=== PATIENT | male | born 1990 | race Caucasian/White ===

== ENCOUNTER 2024-07-02 13:14 | Emergency (ER) | payer MEDICAID, SELFPAY ==
--- NOTE | ~2024-07-02 | CT_ITS ---
EXAMINATION: CT MAXILLOFACIAL WITHOUT CONTRAST CLINICAL INFORMATION: Orbital cellulitis. Swelling of the left cheek. COMPARISON: None available. TECHNIQUE: Multidetector helical imaging was performed in the axial plane with generation of coronal and sagittal reformatted images. This CT examination was performed using dose optimization techniques as appropriate, variously including the following: *Automated exposure control *Adjustment of mA and/or kV according to patient size (this includes techniques or standardized protocols for targeted exams where dose is matched to indication/reason for exam; i.e. extremities or head) *Use of iterative reconstruction technique DLP: 511 mGy-cm FINDINGS: FRONTAL SINUSES AND DRAINAGE PATHWAYS: The frontal sinuses are clear. The frontoethmoidal recesses are patent. MAXILLARY SINUSES AND DRAINAGE PATHWAYS: The maxillary sinuses are clear. The maxillary ostia and infundibula are patent. ETHMOID SINUSES: The ethmoid air cells are clear. The ethmoid roofs appear symmetric and intact. SPHENOID SINUS AND DRAINAGE PATHWAYS: The sphenoid sinus is clear. The sphenoethmoidal recesses are patent. The carotid canals are normally covered by bone. NASAL PASSAGE: The nasal passages are clear. The osseous nasal septum remains midline. ORBITS: Normal appearance of the osseous orbits. The lamina papyracea are intact. Moderate left-sided periorbital, preseptal edema/hyperemia with mild fat stranding extending into the left cheek. There is a 0.6 cm peripherally enhancing collection associated with the left lacrimal gland. No right-sided preseptal edema. No demonstrated significant retrobulbar edema. Normal appearance of the globes. Normal symmetric appearance of the extraocular musculature. No abnormalities of the intraconal or extraconal adipose tissue. Normal appearance of the optic nerve sheaths. Normal appearance of the right-sided lacrimal gland. No orbital fluid collections. No abnormalities of the orbital apices. TEMPOROMANDIBULAR JOINTS: The temporomandibular joints remain well aligned. Normal appearance of the temporomandibular joints. ADDITIONAL RELEVANT FINDINGS: No evidence of maxillofacial bone fractures. The zygomatic arches remain intact. No nasal bone fracture. No evidence of mandibular or maxillary fracture. The visualized mastoid air cells and middle ear cavities remain well aerated. Odontogenic enamel erosions and periapical lucencies associated with the right-sided maxillary and mandibular molars. Limited evaluation of the intracranial structures without significant abnormalities. The premaxillary, retromaxillary, pterygopalatine fossa, temporal fossa, and parapharyngeal adipose tissue is maintained. No demonstrated soft tissue abnormalities within the intrinsic tissues of the tongue. CT/CT facial bones w IV con IMPRESSION: 1. Moderate left-sided periorbital, preseptal edema/hyperemia with mild fat stranding extending into the left cheek. There appears to be a 0.6 cm peripherally enhancing collection associated with the left lacrimal gland, potentially indicating abscess formation in the setting of dacryoadenitis. 2. Odontogenic disease of the right-sided maxillary and mandibular molars. Electronically signed by: Sylvester Berman DO 07/03/2024 12:47 AM EDT
[2024-07-02 13:22] VITALS: BP 148/98; PULSE 70; O2SAT 100
[2024-07-02 13:59] VITALS: BP 127/87; PULSE 62; RESP 16; TEMP 36.4; O2SAT 100; BMI 25.1
--- NOTE | 2024-07-02 14:06 | ED_ITS ---
[facility] - General Adult General Chief complaint: Eye Problems Stated complaint: LEAKY L EYE W/PAIN/SWELLING,WEAK,NUMB HANDS Time Seen by Provider: 07/02/24 18:24 Source: patient, RN notes reviewed and old records reviewed Mode of arrival: ambulatory History of Present Illness ED Provider: Doris Vaz PA-C [facility] narrative: 34-year-old male with no significant past medical history presenting to the ED complaining of left eye swelling, erythema, tearing, drainage, pain, and blurry vision x2 weeks. Describes pain as sandpaper. Denies known foreign body. Admits to wearing contacts, infrequently. Denies known injury, trauma, visual loss. Denies wearing glasses. Related Data Previous Rx's ?Medication ?Instructions ?Recorded amoxicillin 875 mg-potassium 1 tab PO BID #14 tabs 07/03/24 clavulanate 125 mg tablet Allergies Allergy/AdvReac Type Severity Reaction Status Date / Time No Known Allergies Allergy Verified 07/02/24 14:01 Review of Systems 2 Review of Systems: Yes all other systems are reviewed and are negative Constitutional: Constitutional: Reports as per [facility] Past Medical History Attestation statement: The following information was validated with the patient. Source: old records reviewed Social History Social History Advance Directives: No Advance Directives Information Provided: No Physical Exam ED Vital Signs: Vital Signs - 24 hr 07/02/24 13:59 07/02/24 20:15 Temperature 97.5 F 98.2 F Pulse Rate 62 75 Respiratory Rate 16 20 Blood Pressure 127/87 157/102 H Pulse Oximetry 100 100 Oxygen Delivery Method Room Air Room Air BMI result Body Mass Index 25.1 Const General: cooperative, healthy appearing and no acute distress Orientation/consciousness: patient oriented x3 Limitations: no limitations HENMT Head: Yes normal to inspection and Yes atraumatic Ears: hearing grossly normal bilaterally General nose exam: Normal external nose present Face and sinus: Yes normal facial exam Eyes Periorbital: periorbital findings abnormal left periorbital swelling (extending to left cheek) and periorbital tenderness; no crepitus Conjunctivae: conjunctival abnormal left conjunctival chemosis, conjunctival injection diffuse and discharge purulent Corneas: fluorescein used (Without uptake) Pupils: Equal, round and reactive pupils present EOM: EOMs intact bilaterally (+pain with EOM) Direct Ophthalmoscopy: normal light reflex Neck Neck: Yes normal visual inspection and Yes no meningeal signs Resp Effort & Inspection: normal respiratory effort and no respiratory distress Cardio Rate: regular rate Neuro General: patient oriented x3, tone normal and no meningeal signs Cranial nerves: Yes CN's II-XII intact bilaterally and Yes Equal, round and reactive pupils present Gait exam (Neuro): Normal gait present Extrem General: Yes normal to inspection Course Course Course Narrative: This is a rapid medical exam performed by Marck Pierce NP: Additional HPI, ROS, PE not included below will be deferred to primary provider. Patient is a 34-year-old male presenting to the ED with left eye pain, swelling, purulent drainage. Pressure and pain with leaning forward. 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 Viral serologies are negative. Patient and spouse present at bedside were updated on CT findings, periorbital cellulitis concern for possible abscess of the lacrimal gland. I reviewed patient case and CT findings with my attending Dr. Steven; patient is without signs of systemic toxicity, no significantly impaired visual acuity, symptoms have been present for 2 weeks at this point. Will trial course of oral antibiotics with strict return precautions, and prompt re-evaluation 24-48 hours if symptoms are not improving. Instructed the importance of warm compresses and manual massage to the lower lid to try and excrete any drainage from the gland. Should he develop worsening pain, swelling, discharge, fevers, chills, vision changes follow-up for re-evaluation. CT/CT facial bones w IV con IMPRESSION: 1. Moderate left-sided periorbital, preseptal edema/hyperemia with mild fat stranding extending into the left cheek. There appears to be a 0.6 cm peripherally enhancing collection associated with the left lacrimal gland, potentially indicating abscess formation in the setting of dacryoadenitis. 2. Odontogenic disease of the right-sided maxillary and mandibular molars. Medications Administered Discontinued Medications Generic Name Dose Route Start Last Admin Trade Name Freq PRN Reason Stop Dose Admin Fluorescein Sodium 1 strip 07/02/24 14:10 07/02/24 18:17 Fluorescein Sodium Strip EYE-LEFT 07/02/24 14:11 1 strip ONCE ONE Administration Vancomycin HCl 2,000 mg in 500 mls @ 250 mls/hr 07/02/24 18:24 07/02/24 21:42 Vancomycin/Ns IV 07/02/24 20:23 Infused ONCE ONE Infusion Ceftriaxone Sodium 2 gm/ 50 mls @ 100 mls/hr 07/02/24 18:24 07/02/24 19:22 Sodium Chloride IV 07/02/24 18:53 Infused ONCE ONE Infusion Iohexol 100 ml 07/02/24 20:03 07/02/24 20:03 Iohexol 350 Mg/Ml 100 Ml Infus..Btl IV 07/02/24 20:04 85 ml ONCE ONE Administration Tetracaine HCl 1 drop 07/02/24 14:10 07/02/24 18:17 Tetracaine Hcl 0.5% Oph Alecia 5 Ml Drops EYE-LEFT 07/02/24 14:11 1 drop ONCE ONE Administration Medical Decision Making Medical Decision Making MDM Narrative: 34-year-old male with no significant past medical history presenting to the ED complaining of left eye swelling, erythema, tearing, drainage, pain, and blurry vision x2 weeks. On exam vital signs stable, NAD, nontoxic appearing, physical exam as noted above with left periorbital swelling, erythema, conjunctival injection/chemosis with drainage. EOMs intact without entrapment however with pain. Fluorescein used without uptake. Concern for orbital cellulitis vs preseptal cellulitis. No evidence of abrasion or ulceration. Concern for conjunctivitis. Unable to obtain IOP due to malfunctioning Lloyd-Pen Plan: Visual acuity, labs, CT, empiric IV antibiotics, re-evaluate Please refer to course for remaining clinical decision making, interpretation of labs/imaging results, and discussions with consultants and/or family members. Differential Diagnosis Differential Diagnoses: The differential diagnosis associated with the presentation includes As above Admission/Observation Consideration of admission/observation: Escalation of care including admission/observation considered Lab Data [facility] Lab Attestation statement: I reviewed the patient's lab results. 07/02/24 18:52 07/02/24 18:53 Labs: Lab Results 07/02/24 07/02/24 07/02/24 Range/Units 14:49 18:52 18:53 WBC 14.0 H (4.8-10.8) X10*3/uL RBC 4.88 (4.60-5.80) X10*6/uL Hgb 14.9 (14.0-18.0) g/dl Hct 43.8 (42.0-52.0) % MCV 89.8 (80.0-98.0) fL MCH 30.5 (27.0-33.0) pg MCHC 34.0 (31.0-36.0) g/dl RDW 12.4 (11.0-16.0) % Plt Count 386 (160-400) X10*3/uL MPV 8.7 L (9.4-12.4) fL Immature Gran % (Auto) 0.5 H (0.0-0.4) % Neut % (Auto) 72.1 (45-73) % Lymph % (Auto) 17.5 L (20-40) % Tyrrell % (Auto) 8.1 (2-11) % Eos % (Auto) 1.4 (0-4) % Baso % (Auto) 0.4 (0-2) % Lymph # (Auto) 2.5 (1.2-4.9) X10*3/uL Tyrrell # (Auto) 1.1 (0.1-1.2) X10*3/uL Eos # (Auto) 0.2 (0.0-0.4) X10*3/uL Baso # (Auto) 0.1 (0.0-0.2) X10*3/uL Abs Immat Gran (auto) 0.07 H (0.00-0.03) X10*3/uL Absolute Neuts (auto) 10.1 H (2.0-8.3) x10*3/uL Absolute Nucleated RBC 0.000 (0.0-0.012) X10*3/uL Nucleated RBC % (auto) 0.0 (0.0-0.2) /100WBC ESR 8 (0-15) MM/HR Hold Purple Top SEE NOTE Sodium 139 (135-145) mmol/L Potassium 3.6 (3.3-5.1) mmol/L Chloride 101 (96-108) mmol/L Carbon Dioxide 29 (22-29) mmol/L Anion Gap 13 (12-20) BUN 9 (9-16) mg/dL Creatinine 0.91 (0.5-1.4) mg/dL Estim Creat Clear Calc 119.5 Estimated GFR > 60 Random Glucose 104 (60-115) mg/dL Calcium 10.1 (8.4-10.2) mg/dL C-Reactive Protein 2.19 H (< or = 0.50) mg/dL Influenza Type A (PCR) NEGATIVE (Negative) Influenza Type B (PCR) NEGATIVE (Negative) RSV RNA Qual (PCR) NEGATIVE (Negative) SARS-CoV-2 RNA (RT-PCR) NEGATIVE (Negative) Independent Interpretation I performed an independent interpretation of an: CT Scan Radiology Impression Discussion of test interpretation with radiology: I have reviewed the radiologist's reading. External Record Review External record reviewed: Inpatient record, Office record, Outpatient record, Prior outpatient labs, Prior outpatient radiology, Primary care record and Outside ED record Tests considered The following testing was considered but not selected: As above Prescription Management I considered prescription management with: Pain Medication and Antibiotic Critical Care Time Critical Care Time Critical Care Time: Yes Total Critical Care Time: 40 Attestation: I have personally provided critical care time exclusive of time spent on separately billable procedures. Time includes review of lab data, radiology results, discussion with consultants, and monitoring for potential decompensation. Intervention performed as documented. Discharge Plan Discharge Clinical Impression: Periorbital cellulitis Patient Disposition: Home, Self-Care Instructions: Periorbital Cellulitis in Adults (ED) Additional Instructions: Apply warm moist compresses to the eye 3-4 times daily for 10-15 minutes. Wash her hands thoroughly with warm water and mild non scented soap, After application of warm compress, gently massage the lower lid from the outside of the eye to the inside towards your nose using frequent passes to try and excrete milk drainage from the gland. A prescription for oral antibiotics have been sent to your pharmacy, you received your first dose in the emergency department tonight, please begin taking this tomorrow morning. I have provided contact information for the ice specialist/senior geotechnical engineer associated with our hospital, please contact their office in the morning to arrange for a follow-up visit. After 24-48 hours if you do not notice improvement please return for re- evaluation. Additionally if you notice sudden change or worsening of symptoms please seek re-evaluation promptly. Prescriptions: New amoxicillin-pot clavulanate 875-125 mg tablet 1 tab PO BID Qty: 14 0RF Referrals: [facility] [Primary Care Provider] - Musa Saavedra [Physician] - Print Language: Lao
[2024-07-02 15:50] LABS: Influenza A PCR NEGATIVE (Negative); Influenza B PCR NEGATIVE (Negative); Resp Syncy Virus RNA Qual PCR NEGATIVE (Negative); SARS COV2 PCR INHOUSE NEGATIVE (Negative)
[2024-07-02] MEDS: Tetracaine HCl 0.5% Oph Sol 5 ML DROPS 1 DROP EYE-LEFT (18:17)
[2024-07-02] MEDS: Fluorescein Sodium STRIP 1 STRIP EYE-LEFT (18:17)
[2024-07-02] MEDS: cefTRIAXone sodium 2 GM in 0.9 % Sodium Chloride 50 ML IV (19:03)
[2024-07-02 19:05] LABS: MANUAL DIFF FLAG NO
[2024-07-02 19:08] LABS: Basophils Absolute Auto 0.1 X10*3/uL (0.0-0.2); Basophils Percent Auto 0.4 % (0-2); Eosinophils Absolute Auto 0.2 X10*3/uL (0.0-0.4); Eosinophils Percent Auto 1.4 % (0-4); Hematocrit 43.8 % (42.0-52.0); Hemoglobin 14.9 g/dl (14.0-18.0); Imm Gran Abs Auto 0.07 X10*3/uL (0.00-0.03); Imm Gran Pct Auto 0.5 % (0.0-0.4); Lymphocytes Absolute Auto 2.5 X10*3/uL (1.2-4.9); Lymphocytes Percent Auto 17.5 % (20-40); Mean Corpuscular Hemoglobin 30.5 pg (27.0-33.0); Mean Corpuscular Volume 89.8 fL (80.0-98.0); Mean Platelet Volume 8.7 fL (9.4-12.4); Monocytes Absolute Auto 1.1 X10*3/uL (0.1-1.2); Monocytes Percent Auto 8.1 % (2-11); Neutrophils Absolute Auto 10.1 x10*3/uL (2.0-8.3); Neutrophils Percent Auto 72.1 % (45-73); Platelet Count 386 X10*3/uL (160-400); Red Blood Count 4.88 X10*6/uL (4.60-5.80); Red Cell Distribution Width 12.4 % (11.0-16.0)
[2024-07-02 19:31] LABS: Anion Gap 13 (12-20); Blood Urea Nitrogen 9 mg/dL (9-16); C Reactive Protein 2.19 mg/dL (< or = 0.50); Calcium 10.1 mg/dL (8.4-10.2); Carbon Dioxide 29 mmol/L (22-29); Chloride 101 mmol/L (96-108); Creatinine Clr Calc Pharmacy 119.5; Estimated Glomerular Filt Rate > 60; Glucose Random 104 mg/dL (60-115); Potassium 3.6 mmol/L (3.3-5.1); Sodium 139 mmol/L (135-145)
[2024-07-02] MEDS: vancomycin/NS 2,000 MG/500 ML PLAST..BAG 250 MG IV (19:32)
--- NOTE | 2024-07-02 20:01 | PC.NURSE ---
pt brought back from CT Scan at 1759, anitbiotics stopped when pt brought to ct scan antibiotics resumed upon return to room.
[2024-07-02] MEDS: iohexoL 350 MG/ML 100 ML INFUS..BTL IV (20:03)
[2024-07-02 20:04] LABS: Erythrocyte Sedimentation Rate 8 MM/HR (0-15)
[2024-07-02 20:15] VITALS: BP 157/102; PULSE 75; RESP 20; TEMP 36.8; O2SAT 100
--- NOTE | 2024-07-02 23:41 | PC.NURSE ---
Radiology called regarding results for CT scan Provider notified. Plan of care ongoing.
--- NOTE | 2024-07-03 01:06 | PC.NURSE ---
Pt advised waiting on CT results for his eye/face. Pts family at bedside. Plan of care ongoing.
[2024-07-03 01:55] VITALS: BP 169/110; PULSE 70; RESP 16; TEMP 36.8; O2SAT 100
[2024-07-03 01:56] VITALS: BP 169/110; PULSE 70; RESP 16; TEMP 36.8; O2SAT 100
--- NOTE | 2024-07-03 01:56 | PC.NURSE ---
Pt reports he has HTN and did not take his meds today which is why he believes his b/p is high
== END 2024-07-03 02:00 | disposition home or self-care (01) ==
PROVIDERS: Physician Assistant; Registered Nurse Emergency; Emergency Provider Emergency Medicine
DX: L03.213 Periorbital cellulitis (principal); H57.12 Ocular pain, left eye; R20.0 Anesthesia of skin; H53.8 Other visual disturbances; Z79.899 Other long term (current) drug therapy; Z03.818 Encounter for observation for suspected exposure to other biological agents ruled out
CPT/HCPCS: 0241U; 36415; 70487; 80048; 85025; 85652; 86140; 87040; 96365; 96366; 96367; 99284; J0696; J3370; Q9967

== ENCOUNTER 2025-02-14 15:25 | Inpatient (IN) | payer MEDICAID, SELFPAY ==
[2025-02-14] VITALS (9 sets, daily range): BP systolic 135–154; BP diastolic 74–102; PULSE 81–106; RESP 11–22; TEMP 36.6–37.1; O2SAT 91–100; BMI 25.8; BMI 27.7
--- NOTE | 2025-02-14 | ECG_ITS ---
Test Reason : CP Blood Pressure : */* mmHG Vent. Rate : 94 BPM Atrial Rate : 94 BPM P-R Int : 130 ms QRS Dur : 84 ms QT Int : 366 ms P-R-T Axes : * 86 64 degrees QTcB Int : 457 ms Unusual P axis, possible ectopic atrial rhythm otherwise normla EKG No previous ECGs available Referred By: Generic ED Physician Electronically Signed By: YULY MATSON
--- NOTE | ~2025-02-14 | CT_ITS ---
CLINICAL HISTORY: found on ground CT head without contrast Comparison: None Findings: No intra-axial mass, midline shift, hydrocephalus, or acute hemorrhage. No significant atrophy-like change or white matter disease. There is no sinus or mastoid fluid. The orbits are within normal limits. No skull fracture. IMPRESSION: 1. No acute intracranial findings. This document has been electronically signed by: Sara Polo MD on 02/14/2025 16:45:16
--- NOTE | ~2025-02-14 | CT_ITS ---
CLINICAL HISTORY: hypoxia,cp, sob CT angiography chest with contrast. 3D Postprocessing. Comparison: CT - CT ANGIO CHEST PE PROTOCOL - 02/14/25 17:52 EDT Findings: The heart is normal size. RV/LV ratio is normal. The thoracic aorta is normal caliber. No acute pulmonary embolus. The visualized thyroid and mediastinum are unremarkable. No evidence of pneumonia or edema. Calcified right lower lobe nodule. The upper abdomen is unremarkable. No acute fractures. IMPRESSION: 1. No pulmonary emboli. This document has been electronically signed by: Sara Polo MD on 02/14/2025 18:42:03
--- NOTE | 2025-02-14 15:48 | PC.NURSE ---
Pt placed on 10L oxymask d/t desat when sleeping. Pt continuously desat while sleeping into low 80s, O2 returns to >92% when awake. respiratory called to bedside, provider made aware.
--- NOTE | 2025-02-14 16:08 | ED_ITS ---
HPI - Chest Pain General Chief Complaint: Chest Pain Stated Complaint: CP,AGITATION,ETOH & COCAINE PER EMS Time Seen by Provider: 02/14/25 15:55 Source: patient, family, EMS, RN notes reviewed and old records reviewed Mode of arrival: EMS History of Present Illness ED Provider: Doris Vaz PA-C HPI narrative: 34-year-old male with no significant past medical history presenting to the ED via EMS complaining of chest pain/tightness, SOB, ETOH intoxication, and cocaine use [employer]. History obtained from patient and sister who called EMS. States patient was out drinking/snorting cocaine, came home and was diaphoretic, complaining of chest pain, then patient was found on floor of bathroom, confused/out of it. Patient states he put self on the ground due to chest pain/lightheadedness/dizziness. No reported incontinence or witnessed seizure- like activity. Unknown head strike. Patient admits to drinking a lot of alcohol and snorting cocaine, cannot tell us how much. Denies history of ETOH withdrawal/withdrawal seizures. Denies abdominal pain, nausea/vomiting, cough Related Data Previous Rx's ?Medication ?Instructions ?Recorded amoxicillin 875 mg-potassium 1 tab PO BID #14 tabs 07/03/24 clavulanate 125 mg tablet Allergies Allergy/AdvReac Type Severity Reaction Status Date / Time No Known Allergies Allergy Verified 02/14/25 15:40 Review of Systems 2 Review of Systems: Yes all other systems are reviewed and are negative Constitutional: Constitutional: Reports as per HPI Neurologic: Denies Abnormal speech present [facility] Past Medical History Attestation statement: The following information was validated with the patient. Source: old records reviewed Social History Social History Smoked in Last 30 Days: No Use of substances other than those prescribed or required for medical reasons: Yes Substance Use Type: Crack/Cocaine Substance Use Frequency: Chronic Longstanding Last Used Substance: Just Prior to Admission Any prior treatment program specific to substance use: No Advance Directives: No Advance Directives Information Provided: No Do you have a plan to hurt others: No Plan Physical Exam 2 Vital Signs: Vital Signs: Last Vital Signs Temp 97.9 F 02/14/25 15:44 Pulse 92 02/14/25 18:06 Resp 15 02/14/25 18:06 BP 149/98 H 02/14/25 18:06 Pulse Ox 100 02/14/25 18:06 O2 Del Method Oxymask 02/14/25 18:06 O2 Flow Rate 3 02/14/25 18:06 Oxygen Flow Rate 2 02/14/25 15:37 BMI result Body Mass Index 25.8 Const: Other: Appears under the influence. Lethargic however easily arousable General: cooperative Orientation/consciousness: patient oriented x3 HEENT: Head: Yes normal to inspection and Yes atraumatic Ears: hearing grossly normal bilaterally General nose exam: Normal external nose present Face and sinus: Yes normal facial exam Eyes: General: appearance normal, both eyes and all related structures P upils: reactive and Pinpoint pupils bilaterally EOM: EOMs intact bilaterally Direct Ophthalmoscopy: normal light reflex Neck: Neck: Yes normal visual inspection and Yes no meningeal signs Resp: Effort & Inspection: normal respiratory effort and no respiratory distress Auscultation: clear to auscultation bilaterally, no crackles and no wheezes Cardio: Rate: regular rate Heart sounds: S1 normal heart sound present and S2 normal heart sound present GI: Inspection: Yes normal to inspection Palpation (GI): Soft to palpation, nontender, no guarding and not rigid Back/Spine/Pelvis: Other: No midline cervical/thoracic/lumbar spinous tenderness/step-off or deformity Skin: Rashes: no rashes Wounds: no wounds Neuro: Other: Lethargic however easily arousable General: patient oriented x3, tone normal, moves all extremities, no meningeal signs, no focal motor deficits and CN's II-XI intact bilaterally C ranial nerves: Yes CN's II-XII intact bilaterally Speech: No Abnormal speech present Extrem: General: Yes normal to inspection Course Course Course Narrative: > patient was placed on CPAP by RT due to hypoxia -174--leukocytosis at 12.3 > still low suspicion for severe sepsis. No evidence of infection at this time. pH 7.43. Bicarb 33 -lactic acidosis 2.8 > ?Seizure activity. Initial troponin 5.6 > will obtain repeat -ethanol 129 -viral testing negative CT head/brain wo IV con IMPRESSION: 1. No acute intracranial findings. > 180--patient taken off of CPAP by respiratory therapist, satting 100% on 3 L NC now. When patient falls asleep he does de-sat. Concern for undiagnosed sleep apnea. CT angio chest PE protocol IMPRESSION: 1. No pulmonary emboli. > plan to admit for further management. Case discussed with hospitalist Medications Administered Generic Name Dose Route Start Last Admin Trade Name Freq PRN Reason Stop Dose Admin Sodium Chloride 1,000 mls @ 999 mls/hr 02/14/25 18:00 02/14/25 18:05 Ns IV 02/14/25 19:00 999 mls/hr .[id number] RODERICK Administration Discontinued Medications Generic Name Dose Route Start Last Admin Trade Name Freq PRN Reason Stop Dose Admin Iohexol 100 ml 02/14/25 18:03 02/14/25 18:03 Iohexol 350 Mg/Ml 100 Ml Infus..Btl IV 02/14/25 18:04 65 ml ONCE ONE Administration Ondansetron HCl 4 mg 02/14/25 18:12 02/14/25 18:31 Ondansetron Hcl 4 Mg/2 Ml Vial IVPUSH 02/14/25 18:13 4 mg ONCE ONE Administration Medical Decision Making Medical Decision Making MDM Narrative: 34-year-old male with no significant past medical history presenting to the ED via EMS complaining of chest pain/tightness, SOB, ETOH intoxication, and cocaine use [employer]. On exam initially tachycardic, tachypneic, hypoxic, desats to 79% on RA, 96% on 10 L OxyMask, lethargic however easily arousable, lungs CTA, no evidence of trauma. Abdomen is soft and nontender. Concern for substance use/ETOH abuse intoxication vs ACS vs coronary vasospasm vs ?PE vs ?seizure or syncope. Low suspicion for severe sepsis at this time. Lower suspicion for ICH or intra-abdominal pathology. low suspicion for severe sepsis Plan: EKG, labs, UA, tox screen, head CT, CTA chest, viral testing, anticipated admission Please refer to course for remaining clinical decision making, interpretation of labs/imaging results, and discussions with consultants and/or family members. Differential Diagnosis Differential Diagnoses: The differential diagnosis associated with the presentation includes As above Admission/Observation Consideration of admission/observation: Escalation of care including admission/observation considered Consult Healthcare Provider Management of the patient was discussed with: Hospitalist Lab Data [facility] Lab Attestation statement: I reviewed the patient's lab results. 02/14/25 16:31 02/14/25 16:31 Labs: Lab Results 02/14/25 02/14/25 Range/Units 16:31 16:38 WBC 12.3 H (4.8-10.8) X10*3/uL RBC 4.89 (4.60-5.80) X10*6/uL Hgb 14.8 (14.0-18.0) g/dl Hct 43.0 (42.0-52.0) % MCV 87.9 (80.0-98.0) fL MCH 30.3 (27.0-33.0) pg MCHC 34.4 (31.0-36.0) g/dl RDW 12.9 (11.0-16.0) % Plt Count 393 (160-400) X10*3/uL MPV 8.0 L (9.4-12.4) fL Immature Gran % (Auto) 0.5 H (0.0-0.4) % Neut % (Auto) 69.5 (45-73) % Lymph % (Auto) 19.3 L (20-40) % [place] % (Auto) 7.6 (2-11) % Eos % (Auto) 2.4 (0-4) % Baso % (Auto) 0.7 (0-2) % Lymph # (Auto) 2.4 (1.2-4.9) X10*3/uL [place] # (Auto) 0.9 (0.1-1.2) X10*3/uL Eos # (Auto) 0.3 (0.0-0.4) X10*3/uL Baso # (Auto) 0.1 (0.0-0.2) X10*3/uL Abs Immat Gran (auto) 0.06 H (0.00-0.03) X10*3/uL Absolute Neuts (auto) 8.5 H (2.0-8.3) x10*3/uL Absolute Nucleated RBC 0.000 (0.0-0.012) X10*3/uL Nucleated RBC % (auto) 0.0 (0.0-0.2) /100WBC PT 11.4 (10.9-12.4) SEC INR 1.0 (0.9-1.1) VBG pH 7.43 (7.32-7.43) VBG pCO2 33 mmHg VBG pO2 117 mmHg VBG HCO3 22 (22-26) mmol/L VBG O2 Saturation 99.0 % VBG Base Excess -0.8 mmol/L Sodium 142 (135-145) mmol/L Potassium 3.4 (3.3-5.1) mmol/L Chloride 106 (96-108) mmol/L Carbon Dioxide 21 L (22-29) mmol/L Anion Gap 18 (12-20) BUN 9 (9-16) mg/dL Creatinine 1.02 (0.5-1.4) mg/dL Estim Creat Clear Calc 106.6 Estimated GFR > 60 Random Glucose 112 (60-115) mg/dL Lactic Acid 2.8 H* (0.5-2.0) mmol/L Calcium 9.1 D (8.4-10.2) mg/dL Magnesium 2.0 (1.6-2.6) mg/dL Total Bilirubin 0.4 (0.0-1.0) mg/dL AST 34 (5-37) U/L ALT 24 (0-40) U/L Alkaline Phosphatase 96 (39-117) U/L Troponin I Hi Sens Base 5.6 (<3.5-35.0) ng/L B-Natriuretic Peptide < 10 (<100) pg/mL Total Protein 7.7 (6.5-8.0) g/dL Albumin 4.3 (3.5-5.0) g/dL Ethyl Alcohol 129 mg/dL Influenza Type A (PCR) NEGATIVE (Negative) Influenza Type B (PCR) NEGATIVE (Negative) RSV RNA Qual (PCR) NEGATIVE (Negative) SARS-CoV-2 RNA (RT-PCR) NEGATIVE (Negative) Independent Interpretation I performed an independent interpretation of an: EKG (My interpretation EKG normal sinus rhythm rate of 94. CT interval 130. QTC 457. No STEMI), Plain X- Ray and CT Scan Radiology Impression Discussion of test interpretation with radiology: I have reviewed the radiologist's reading. Independent Historian Clinical information obtained from an independent historian. History obtained from or confirmed by: EMS and Other (Sister) External Record Review External record reviewed: Inpatient record, Office record, Outpatient record, Prior outpatient labs, Prior outpatient radiology, Primary care record and Outside ED record Tests considered The following testing was considered but not selected: As above Prescription Management I considered prescription management with: Other Chronic Conditions Patient?s care impacted by: Other Social Determinants Patient?s care significantly limited by Social Determinants of Health including: Alcoholism and drug addiction in family, Problems related to primary support group and Other Social Determinant of Health Critical Care Time Critical Care Time Critical Care Time: Yes Total Critical Care Time: 50 Attestation: I have personally provided critical care time exclusive of time spent on separately billable procedures. Time includes review of lab data, radiology results, discussion with consultants, and monitoring for potential decompensation. Intervention performed as documented. Discharge Plan Discharge Clinical Impression: Chest pain, Alcohol intoxication, Cocaine use, Hypoxia, Elevated lactic acid level Patient Disposition: Admitted As Inpatient Print Language: Unable To Collect
[2025-02-14 16:37] LABS: MANUAL DIFF FLAG NO
[2025-02-14 16:42] LABS: VBG Base Excess -0.8 mmol/L; VBG HCO3 22 mmol/L (22-26); VBG pCO2 33 mmHg; VBG pH 7.43 (7.32-7.43); VBG pO2 117 mmHg
[2025-02-14 16:45] LABS: Venous Blood Gas Refer to POC result
[2025-02-14 16:47] LABS: Basophils Absolute Auto 0.1 X10*3/uL (0.0-0.2); Basophils Percent Auto 0.7 % (0-2); Eosinophils Absolute Auto 0.3 X10*3/uL (0.0-0.4); Eosinophils Percent Auto 2.4 % (0-4); Hemoglobin 14.8 g/dl (14.0-18.0); Imm Gran Abs Auto 0.06 X10*3/uL (0.00-0.03); Imm Gran Pct Auto 0.5 % (0.0-0.4); Lymphocytes Absolute Auto 2.4 X10*3/uL (1.2-4.9); Lymphocytes Percent Auto 19.3 % (20-40); Mean Corpuscular HGB Conc 34.4 g/dl (31.0-36.0); Mean Corpuscular Hemoglobin 30.3 pg (27.0-33.0); Mean Corpuscular Volume 87.9 fL (80.0-98.0); Monocytes Absolute Auto 0.9 X10*3/uL (0.1-1.2); Monocytes Percent Auto 7.6 % (2-11); Neutrophils Absolute Auto 8.5 x10*3/uL (2.0-8.3); Neutrophils Percent Auto 69.5 % (45-73); Platelet Count 393 X10*3/uL (160-400); Red Blood Count 4.89 X10*6/uL (4.60-5.80); Red Cell Distribution Width 12.9 % (11.0-16.0); White Blood Count 12.3 X10*3/uL (4.8-10.8)
[2025-02-14 16:51] LABS: Ethanol 129 mg/dL
[2025-02-14 16:52] LABS: Prothrombin Time 11.4 SEC (10.9-12.4)
[2025-02-14 16:55] LABS: Alanine Aminotransferase 24 U/L (0-40); Albumin Level 4.3 g/dL (3.5-5.0); Alkaline Phosphatase 96 U/L (39-117); Anion Gap 18 (12-20); Aspartate Amino Transferase 34 U/L (5-37); Bilirubin Total 0.4 mg/dL (0.0-1.0); Blood Urea Nitrogen 9 mg/dL (9-16); Calcium 9.1 mg/dL (8.4-10.2); Carbon Dioxide 21 mmol/L (22-29); Chloride 106 mmol/L (96-108); Creatinine Clr Calc Pharmacy 106.6; Estimated Glomerular Filt Rate > 60; Glucose Random 112 mg/dL (60-115); Potassium 3.4 mmol/L (3.3-5.1); Sodium 142 mmol/L (135-145); Total Protein 7.7 g/dL (6.5-8.0)
[2025-02-14 16:57] LABS: Lactic Acid 2.8 mmol/L (0.5-2.0)
[2025-02-14 16:59] LABS: B Type Natriuretic Peptide < 10 pg/mL (<100)
[2025-02-14 17:01] LABS: Troponin-I High Sens Reflx 2hr 5.6 ng/L (<3.5-35.0)
[2025-02-14 17:24] LABS: Influenza A PCR NEGATIVE (Negative); Influenza B PCR NEGATIVE (Negative); Resp Syncy Virus RNA Qual PCR NEGATIVE (Negative); SARS COV2 PCR INHOUSE NEGATIVE (Negative)
[2025-02-14] MEDS: iohexoL 350 MG/ML 100 ML INFUS..BTL IV (18:03)
[2025-02-14] MEDS: 0.9 % Sodium Chloride 1,000 ML 999 ML IV ×2 (18:05→21:06)
[2025-02-14] MEDS: ondansetron HCL 4 MG/2 ML VIAL IVPUSH (18:31)
--- NOTE | 2025-02-14 18:32 | PC.NURSE ---
Pt placed on CPAP by Nguyễn KANG. Pt O2 sats remained above 92% while sleeping. Trial pt off CPAP per NADIR George- placed on 3L Oxymask. Maintaining O2 sat high 90s. Respirations even and unlabored, no signs of respiratory distress, pt denies chest pain. Resting quietly at this time, call evangelista within reach, family at bedside.
[2025-02-14 18:35] LABS: Reflex Lactate? Lactic Acid Added; Reflex Trop? Y
--- NOTE | 2025-02-14 19:32 | P.HPHOSP_ITS ---
History of Present Illness Date of Service: 02/14/25 <[facility] - Last Filed: 02/14/25 20:05> Attending physician on admission: Bel Parish <[facility] - Last Filed: 02/14/25 20:05> Chief Complaint: withdrawal symptoms <[facility] - Last Filed: 02/14/25 20:05> Patient is 34-year-old male with past medical history infectious cut on the bottom of the foot/sepsis at age 12 which lead to multiorgan failure and ICU admission, alcohol dependence, cocaine use, marijuana use was brought in by ambulance from his sister's home after 2 nights of cocaine use along with usual alcohol use, minimum 2-3 hard liquor drinks. Patient does currently work a full-time job and is the father of 2 children. Patient began to green party after work on night using a moderate amount of cocaine and alcohol. Patient then went to work on Sunday and met up with the same friends and began drinking alcohol and used copious amounts of cocaine via snorting. Patient clarified he was not using crack cocaine. At some point patient made it to his sister's house as he decided it may not be a good idea to be alone. Patient awakened prior to 12 noon and attempted to eat some food. Patient then began to have sudden chest pressure, numbness and tingling to arms and legs, perfuse sweating with nausea and then vomiting. Patient had to lie himself on the bathroom floor and sister saw that he needed intervention. Per patient's sister patient did not lose consciousness and did not appear to have seizure-like activity. 911 was called and patient was brought in for evaluation. Patient was found to be hypoxic 79% on room air. Patient was extremely anxious. Face mask was applied and oxygenation improved. CTA negative for PE, no evidence of pneumonia or edema. Calcified right lower lobe nodule. No acute fractures. Head CT also negative for any acute changes. UA pending. Currently patient has impressive rhinitis with injected sclera. Patient has an intermittent memory of what occurred over the last 2 nights. Patient admits that he is scared and feels that he could have lost his life. Patient's sister expresses that patient's symptoms of drinking daily now has been going on for the last 3-5 months. Patient drinks usually hard liquor 2-3 drinks minimum. Patient appears to be drinking due to increased stress. Patient denies any use of other illicit drugs including fentanyl or crack cocaine. Patient has no history of IV drug abuse. Patient currently denies any suicidal ideation. There is some concern for possible aspiration pneumonia with wheezing noted on the right upper and middle lobes. Patient has a leukocytosis of 12.3 and a lactic acid of 2.8. Patient is not tachycardic or febrile. EKG is reassuring, normal sinus rhythm no ischemic changes. Troponin negative. BNP also normal. Patient currently denies any chest pain, numbness and reports all his previous symptoms have resolved. Plan is admit patient for alcohol/cocaine withdrawal, phenobarbital, antibiotics, IV fluids, antiemetics, addictions referral. <SHAAN Hall - Last Filed: 02/14/25 20:05> Review of Systems 2 Review of Systems: Patient currently denies any chest pain, shortness of breath at rest or with exertion, abdominal pain, lower leg pain, numbness or tingling in any of the extremities. Patient reports a mild headache but no visual acuity changes. Patient denies any issues with swallowing. <SHARMIN HallDAVID - Last Filed: 02/14/25 20:05> Yes all other systems are reviewed and are negative <SHARMIN HallDAVID - Last Filed: 02/14/25 20:05> [facility] Medical History: Medical History (Updated 02/14/25 @ 19:48 by SHAAN Hall) Cocaine use Alcohol intoxication Marijuana dependence Sepsis <SHAAN Hall - Last Filed: 02/14/25 20:05> Functional capacity: independent ambulation <CORETTA HallDAVID - Last Filed: 02/14/25 20:05> Social History: Social History Patient Tobacco Use Status: Former Tobacco user Smoked in Last 30 Days: No Use of substances other than those prescribed or required for medical reasons: Yes Substance Use Type: Crack/Cocaine Substance Use Frequency: Chronic Longstanding Last Used Substance: Just Prior to Admission Any prior treatment program specific to substance use: No Advance Directives: No Advance Directives Information Provided: No Do you have a plan to hurt others: No Plan Nutrition Risks: No Nutritional Risk <Estefani Mendenhall [facility] - Last Filed: 02/14/25 20:05> Ebola Risk: Travel/Contact With Anyone From Affected Area/s: No <[facility] Last Filed: 02/14/25 20:05> Has Patient Experienced Ebola Symptoms: No <[facility] Last Filed: 02/14/25 20:05> Meds Allergies/Adverse reactions: Allergies Allergy/AdvReac Type Severity Reaction Status Date / Time No Known Allergies Allergy Verified 02/14/25 15:40 <[facility] Last Filed: 02/14/25 20:05> Active Medications: Current Medications Acetaminophen (Acetaminophen 325 Mg Tablet) 650 mg PO Q6H PRN PRN Reason: Pain, Mild 1-3,fever,headache Albuterol/Ipratropium (Albuterol/Iprat 2.5/0.5mg 3 Ml Ampul.Neb) 3 ml INHALE Q4H PRN PRN Reason: Shortness of Breath/Wheezing Ampicillin Sodium/Sulbactam Sodium (Ampicillin Sodium/Sulbactam Na 3 Gm Vial) 3 gm IM Q6H [facility] Benzonatate (Benzonatate 100 Mg Capsule) 100 mg PO TID PRN PRN Reason: Cough Calcium Carbonate (Calcium Carbonate 750 Mg Tab.Chew) 750 mg PO Q4H PRN PRN Reason: Heartburn Enoxaparin Sodium (Enoxaparin Sodium 40 Mg/0.4 Ml Syringe) 40 mg SUBCUT Q24H [facility] Sodium Chloride (Ns) 1,000 mls @ 999 mls/hr IV .Q1H1M [facility] Stop: 02/14/25 20:00 Magnesium Hydroxide (Milk Of Magnesia 30 Ml Oral.Susp) 30 ml PO DAILY PRN PRN Reason: Constipation Melatonin (Melatonin 3 Mg Tablet) 6 mg PO BEDTIME PRN PRN Reason: Insomnia Ondansetron HCl (Ondansetron Hcl 4 Mg/2 Ml Vial) 4 mg IVPUSH Q8H PRN PRN Reason: Nausea and Vomiting Pharmacy Consult (Consult Rx Etoh Phenob Im/Po) 1 each MISCELLANE ONCE PRN; Protocol PRN Reason: Consult order Sodium Chloride (0.9 % Sodium Chloride Flush 3 Ml Syringe) 3 ml IVFLUSH QSHIFT RODERICK <[facility] - Last Filed: 02/14/25 20:05> Physical Exam 2 Vital Signs and Narrative: Vital Signs: Last Vital Signs Temp 97.9 F 02/14/25 15:44 Pulse 92 02/14/25 18:06 Resp 15 02/14/25 18:06 BP 149/98 H 02/14/25 18:06 Pulse Ox 100 02/14/25 18:06 O2 Del Method Oxymask 02/14/25 18:06 O2 Flow Rate 3 02/14/25 18:06 Oxygen Flow Rate 2 02/14/25 15:37 BMI result Body Mass Index 25.8 <[facility] - Last Filed: 02/14/25 20:05> Alert and orientated X3, appears in skock over what has happened, tearful Neuro: CN II-X11 intact, no deficits, visual acuity intact EYES: PERRLA, EOM intact, sclera injected, conjunctiva pink ENT: hearing intact, no issues with swallowing, uvula midline, lips moist, nares patent septum patewnt, no epistaxis Cardiac: S1 S2 RRR, no murmur, no JVD, no edema in Lower ext Pulmonary: lungs wheezing noted upper and middle R lobes, diminshed L lobe Abdominal: BS active in all 4 quadrants, no guarding, tenderness, rebounding MSK: strength 5/5 upper and lower extremities : no CVA tenderness no bladder distension Extremities: no edema in lower extremities, PT and DP pulses palpable +2 Psych: mood anxious, judgement and insight good SKin: no open wounds, none reported <[facility] - Last Filed: 02/14/25 20:05> Results Labs CBC and Chem 7: 02/14/25 16:31 02/14/25 16:31 <[facility] - Last Filed: 02/14/25 20:05> Labs: Laboratory Results - last 24 hr 02/14/25 02/14/25 16:31 16:38 MCV 87.9 MCH 30.3 MCHC 34.4 RDW 12.9 Plt Count 393 MPV 8.0 L Immature Gran % (Auto) 0.5 H Neut % (Auto) 69.5 Lymph % (Auto) 19.3 L [place] % (Auto) 7.6 Eos % (Auto) 2.4 Baso % (Auto) 0.7 Lymph # (Auto) 2.4 [place] # (Auto) 0.9 Eos # (Auto) 0.3 Baso # (Auto) 0.1 Abs Immat Gran (auto) 0.06 H Absolute Neuts (auto) 8.5 H Absolute Nucleated RBC 0.000 Nucleated RBC % (auto) 0.0 PT 11.4 INR 1.0 VBG pH 7.43 VBG pCO2 33 VBG pO2 117 VBG HCO3 22 VBG O2 Saturation 99.0 VBG Base Excess -0.8 Anion Gap 18 Estim Creat Clear Calc 106.6 Estimated GFR > 60 Random Glucose 112 Lactic Acid 2.8 H* Calcium 9.1 D Magnesium 2.0 Total Bilirubin 0.4 AST 34 ALT 24 Alkaline Phosphatase 96 Troponin I Hi Sens Base 5.6 B-Natriuretic Peptide < 10 Total Protein 7.7 Albumin 4.3 Ethyl Alcohol 129 Influenza Type A (PCR) NEGATIVE Influenza Type B (PCR) NEGATIVE RSV RNA Qual (PCR) NEGATIVE SARS-CoV-2 RNA (RT-PCR) NEGATIVE <[facility] - Last Filed: 02/14/25 20:05> ECG Attestation: I personally reviewed and interpreted this ECG as follows: (Normal sinus rhythm no ischemic changes) <[facility] - Last Filed: 02/14/25 20:05> ECG interpretation date: 02/14/25 <[facility] Last Filed: 02/14/25 20:05> Imaging Radiologist's Impressions: CTA chest Findings: The heart is normal size. RV/LV ratio is normal. The thoracic aorta is normal caliber. No acute pulmonary embolus. The visualized thyroid and mediastinum are unremarkable. No evidence of pneumonia or edema. Calcified right lower lobe nodule. The upper abdomen is unremarkable. No acute fractures. IMPRESSION: 1. No pulmonary emboli. <[facility] - Last Filed: 02/14/25 20:05> Assessment and Plan (1) Chest pain: Qualifiers: Chest pain type: other chest pain Qualified Code(s): R07.89 - Other chest pain <Estefani Mendenhall [facility] - Last Filed: 02/14/25 20:05> Status: Acute <Estefani Mendenhall [facility] - Last Filed: 02/14/25 20:05> Patient is 34-year-old male with past medical history infectious cut on the bottom of the foot/sepsis at age 12 which lead to multiorgan failure and ICU admission, alcohol dependence, cocaine use, marijuana presents to the emergency room status post cocaine binge with alcohol use daily. Patient was brought in out of concern for chest pain. Workup is negative. CTA negative for PE. Patient being admitted for monitoring. No seizure activity suspected. Chest pain/ chest pressure -ECG NSR no ischemic changes -Troponin WNL, BNP WNL -Telemetry -Electrolytes stable, check labs in AM Acute hypoxic respiratory/ possible aspiration PNA from vomiting -Pt does not meet the criteria for sepsis at this time -Oxygen required initially, pt had vomited at home after cocaine binge and alcohol use -CTA neg for PE, PNA -Starting UNASYN empirically for possible aspiration noting leukocytosis and LA, reviewed with Dr Parish -wean O2 as tolerated -Duo nebs, supportive care Alcohol dependence -Phenobarbitol protocol started -CIWA -Thiamine and Folic Acid -No 1:1 needed, no section 12 pt is not suicidal -Pt can eat as he can protect his airway -antiemetics for nausea prn -IVF Cocaine Binge -Pt educated at length about use of cocaine, crack cocaine, excessive use and risk always of overdose especially if laced with other drugs like fentanyl -Reviewed use of cocaine and alcohol together -Addictions consulted, pt appears scared and is ready to get help -Nasal septum is intact -Claritin X1 for Drug induced Rhinitis DVT prophylaxis: Lovenox PPI prophylaxis: Protonix Med rec completed Patient is a full code status <Estefani Mendenhall [facility] - Last Filed: 02/14/25 20:05> Patient is 34-year-old male with past medical history infectious cut on the bottom of the foot/sepsis at age 12 which lead to multiorgan failure and ICU admission, alcohol dependence, cocaine use, marijuana presents to the emergency room status post cocaine binge with alcohol use daily. Patient was brought in out of concern for chest pain. Workup is negative. CTA negative for PE. Patient being admitted for monitoring. No seizure activity suspected. Chest pain/ chest pressure -ECG NSR no ischemic changes -Troponin WNL, BNP WNL -Telemetry -Electrolytes stable, check labs in AM Acute hypoxic respiratory/ possible aspiration PNA from vomiting -Pt does not meet the criteria for sepsis at this time -Oxygen required initially, pt had vomited at home after cocaine binge and alcohol use -CTA neg for PE, PNA -Starting UNASYN empirically for possible aspiration noting leukocytosis and LA, reviewed with Dr Parish -wean O2 as tolerated -Duo nebs, supportive care Alcohol dependence -Phenobarbitol protocol started -CIWA -Thiamine and Folic Acid -No 1:1 needed, no section 12 pt is not suicidal -Pt can eat as he can protect his airway -antiemetics for nausea prn -IVF Cocaine Binge -Pt educated at length about use of cocaine, crack cocaine, excessive use and risk always of overdose especially if laced with other drugs like fentanyl -Reviewed use of cocaine and alcohol together -Addictions consulted, pt appears scared and is ready to get help -Nasal septum is intact -Claritin X1 for Drug induced Rhinitis DVT prophylaxis: Lovenox PPI prophylaxis: Protonix Med rec completed Patient is a full code status Patient admitted as inpatient for supplemental o2 and IV abx <Bel Parish MD - Last Filed: 02/14/25 20:54> Quality Stroke Does the patient have a stroke diagnosis?: No <Beckwourth Za [facility] - Last Filed: 02/14/25 20:05> Reason for No Anti-thrombotic by Day Two: N/A - Med Ordered <[place] Za [facility] - Last Filed: 02/14/25 20:05> VTE Prior VTE?: No <[place] Za, [facility] - Last Filed: 02/14/25 20:05> VTE Risk Level:: Medical - moderate - high <Estefanityler Mendenhall [facility] - Last Filed: 02/14/25 20:05> VTE Device Contraindication: N/A - Device Ordered <Estefani Za, [facility] - Last Filed: 02/14/25 20:05> VTE Drug Contraindication: Treatment Not Indicated <Beckwourthtyler Mendenhall [employer] - Last Filed: 02/14/25 20:05>
[2025-02-14 19:44] LABS: Appearance Urine Clear; Color Urine Yellow; Glucose Urine UA Negative (Negative); Leukocyte Esterase Urine Negative (Negative); Nitrite Urine Negative (Negative); PH 5.5 (5.0-9.0); Specific Gravity - Urine >= 1.030 (1.005-1.025); UMIC TRIGGER UACC YES; Urine Blood Negative (Negative); Urine Ketones 15 mg/dL (Negative); Urine Protein 100 (2+) mg/dL (Neg-Trace)
[2025-02-14 19:49] LABS: Bacteria Urine None Seen (None Seen); Hyaline Casts Urine 0-2 /LPF (0-2); RBC Urine 0-2 /HPF (0-2); Squamous Epithelial Cell Urine 0-2 /HPF (0-2); WBC Urine 0-5 /HPF (0-5)
[2025-02-14 19:53] LABS: Amphetamine Screen Urine Not Detected (Not Detect); Barbiturates, Urine Not Detected (Not Detect); Benzodiazepines Screen Urine Not Detected (Not Detect); Buprenorphine Scr Not Detected (Not Detect); Cannabinoid Screen Urine POSITIVE (Not Detect); Cocaine Screen Urine POSITIVE (Not Detect); Fentanyl, urine Not Detected (Not Detect); Methadone Screen, Urine Not Detected (Not Detect); Opiate Screen Urine Not Detected (Not Detect); Oxycodone Screen Urine Not Detected (Not Detect); Phencyclidine Screen Urine Not Detected (Not Detect)
[2025-02-14 20:07] LABS: Troponin-I High Sensitivity 5.4 ng/L (<3.5-35.0)
[2025-02-14 20:08] LABS: zTroponin-I High Sen Reflex #2 4.4 ng/L (<3.5-35.0)
[2025-02-14 20:34] LABS: Lactic Acid 1.7 mmol/L (0.5-2.0)
--- NOTE | 2025-02-14 20:37 | PC.NURSE ---
RN consulted with hospitalist to inquire if blood cultures would be required prior to IV ABX administration. New orders to be received prior to hanging of Antibiotics
[2025-02-14] MEDS: Loratadine 10 MG TABLET PO (21:07)
[2025-02-14] MEDS: Enoxaparin Sodium 40 MG/0.4 ML SYRINGE SUBCUT (21:07)
[2025-02-14] MEDS: PHENobarbitaL sodium 130 MG/ML IM ONCE 301 MG IM (21:07)
[2025-02-14] MEDS: diazePAM 10 MG/2 ML CARTRIDGE IVPUSH (21:08)
--- NOTE | 2025-02-14 21:24 | PC.NURSE ---
phleb at bedside obtaining blood cultures; IV antibiotics to be hung after
[2025-02-14] MEDS: Thiamine HCL 200 MG in 0.9 % Sodium Chloride 100 ML 204 MG IV (21:44)
[2025-02-14] MEDS: Ampicillin Sodium/Sulbactam Na 3 GM in 0.9 % Sodium Chloride 100 ML IV (23:06)
[2025-02-15] MEDS: PHENobarbitaL sodium 130 MG/ML VIAL IM Q3Hx2 226 MG IM ×2 (00:48→04:49)
[2025-02-15 04:00] VITALS: BP 157/81; PULSE 84; RESP 17; TEMP 36.8; O2SAT 99
[2025-02-15] MEDS: Ampicillin Sodium/Sulbactam Na 3 GM in 0.9 % Sodium Chloride 100 ML IV ×2 (04:54→10:24)
[2025-02-15 06:31] VITALS: BMI 28.0
[2025-02-15 07:09] VITALS: BP 140/83; PULSE 74; RESP 16; TEMP 36.8; O2SAT 100
[2025-02-15 07:20] LABS: MANUAL DIFF FLAG NO
[2025-02-15 07:24] LABS: Basophils Absolute Auto 0.1 X10*3/uL (0.0-0.2); Basophils Percent Auto 0.7 % (0-2); Eosinophils Absolute Auto 0.6 X10*3/uL (0.0-0.4); Eosinophils Percent Auto 6.3 % (0-4); Hematocrit 41.8 % (42.0-52.0); Hemoglobin 13.9 g/dl (14.0-18.0); Imm Gran Abs Auto 0.05 X10*3/uL (0.00-0.03); Imm Gran Pct Auto 0.5 % (0.0-0.4); Lymphocytes Absolute Auto 2.7 X10*3/uL (1.2-4.9); Lymphocytes Percent Auto 26.5 % (20-40); Mean Corpuscular HGB Conc 33.3 g/dl (31.0-36.0); Mean Corpuscular Hemoglobin 29.8 pg (27.0-33.0); Mean Corpuscular Volume 89.7 fL (80.0-98.0); Mean Platelet Volume 8.4 fL (9.4-12.4); Monocytes Percent Auto 9.5 % (2-11); Neutrophils Absolute Auto 5.7 x10*3/uL (2.0-8.3); Neutrophils Percent Auto 56.5 % (45-73); Platelet Count 348 X10*3/uL (160-400); Red Blood Count 4.66 X10*6/uL (4.60-5.80); White Blood Count 10.1 X10*3/uL (4.8-10.8)
[2025-02-15 07:55] LABS: Alanine Aminotransferase 17 U/L (0-40); Albumin Level 3.7 g/dL (3.5-5.0); Alkaline Phosphatase 84 U/L (39-117); Anion Gap 11 (12-20); Aspartate Amino Transferase 27 U/L (5-37); Bilirubin Total 0.9 mg/dL (0.0-1.0); Blood Urea Nitrogen 8 mg/dL (9-16); Calcium 8.5 mg/dL (8.4-10.2); Carbon Dioxide 25 mmol/L (22-29); Chloride 107 mmol/L (96-108); Creatinine Clr Calc Pharmacy 141.9; Estimated Glomerular Filt Rate > 60; Glucose Random 92 mg/dL (60-115); Potassium 3.9 mmol/L (3.3-5.1); Sodium 139 mmol/L (135-145); Total Protein 6.5 g/dL (6.5-8.0)
--- NOTE | 2025-02-15 08:18 | MHC.CM.PN ---
CM met with Patient and his Girlfriend/Gayle at bedside. Patient lives in an apartment with his Girlfriend, who will transport to home at time of dc, and he is functionally independent. Patient may benefit from a Recovery Team Consult r/t ETOH,Cocaine and disposition. CM has initiated and will follow for dc planning. Patient has no PCP(PCP brochure to be provided).
[2025-02-15] MEDS: Thiamine HCL 100 MG TABLET PO (08:20)
[2025-02-15] MEDS: 0.9 % Sodium Chloride Flush 3 ML SYRINGE IVFLUSH ×2 (08:20→22:39)
[2025-02-15] MEDS: Folic Acid 1 MG TABLET PO (08:20)
[2025-02-15] MEDS: PHENobarbitaL 30 MG TABLET 60 MG PO ×2 (08:20→22:22)
[2025-02-15 09:08] LABS: Troponin-I High Sensitivity 4.3 ng/L (<3.5-35.0)
--- NOTE | 2025-02-15 09:48 | PHA.MEDREC ---
Addendum entered by Bev Sanchez RPh 02/15/25 11:02: [facility] REVIEWED Original Note: Pharmacy Consult ? Medication Reconciliation Pharmacy has completed the medication reconciliation. Pt states they were supposed to be on medications for hypertension since a year ago, but do not have a PCP to continue prescribing any medications. Currently on no medications.
[2025-02-15 10:54] VITALS: BP 135/86; PULSE 78; RESP 16; TEMP 36.7; O2SAT 99
--- NOTE | 2025-02-15 11:44 | P.PNIM_ITS ---
Subjective Subjective Date of Service: 02/15/25 Interval History: Seen and examined this morning Follow-up for possible aspiration, substance use No chest pain, no shortness a breath, no cough. Feeling much better Review of Systems Review of Systems: Yes all other systems are reviewed and are negative Constitutional Constitutional: Denies chills and Denies fever(s) ENT Ears, Nose, Mouth, and Throat: Denies dizziness Cardiovascular Cardiovascular: Denies chest pain and Denies dyspnea Respiratory Respiratory: Denies cough and Denies dyspnea Gastrointestinal Gastrointestinal: Denies abdominal pain, Denies nausea and Denies vomiting Neurologic Neurologic: Denies dizziness Physical Exam 2 Vital Signs: Vital Signs: Last Vital Signs Temp 98.0 F 02/15/25 10:54 Pulse 78 02/15/25 10:54 Resp 16 02/15/25 10:54 BP 135/86 02/15/25 10:54 Pulse Ox 99 02/15/25 10:54 O2 Del Method Room Air 02/15/25 10:54 O2 Flow Rate 4 02/14/25 19:47 Oxygen Flow Rate 2 02/14/25 15:37 BMI result Body Mass Index 28.0 Const: General: cooperative, comfortable, no acute distress, alert and awake Nutritional Appearance: average body habitus Orientation/consciousness: p atient oriented x3 Resp: Effort & Inspection: normal respiratory effort, able to speak in complete sentences, no respiratory distress and no use of accessory muscles A uscultation: clear to auscultation bilaterally Cardio: Rate: regular rate GI: Inspection: No distended Palpation (GI): Soft to palpation and nontender Neuro: General: patient oriented x3, moves all extremities and CN's II-XI intact bilaterally Extrem: General: Yes no pedal edema Objective Data Active Medications Acetaminophen (Acetaminophen 325 Mg Tablet) 650 mg PO Q6H PRN PRN Reason: Pain, Mild 1-3,fever,headache Albuterol/Ipratropium (Albuterol/Iprat 2.5/0.5mg 3 Ml Ampul.Neb) 3 ml INHALE Q4H PRN PRN Reason: Shortness of Breath/Wheezing Benzonatate (Benzonatate 100 Mg Capsule) 100 mg PO TID PRN PRN Reason: Cough Calcium Carbonate (Calcium Carbonate 750 Mg Tab.Chew) 750 mg PO Q4H PRN PRN Reason: Heartburn Enoxaparin Sodium (Enoxaparin Sodium 40 Mg/0.4 Ml Syringe) 40 mg SUBCUT Q24H [facility] Last Admin: 02/14/25 21:07 Dose: 40 mg Documented By: MINDI Folic Acid (Folic Acid 1 Mg Tablet) 1 mg PO DAILY [facility] Last Admin: 02/15/25 08:20 Dose: 1 mg Documented By: KEYON Ampicillin Sodium/Sulbactam (Sodium 3 gm/ Sodium Chloride) 100 mls @ 200 mls/hr IV Q6H [facility] Last Admin: 02/15/25 10:24 Dose: 200 mls/hr Documented By: KEYON Magnesium Hydroxide (Milk Of Magnesia 30 Ml Oral.Susp) 30 ml PO DAILY PRN PRN Reason: Constipation Melatonin (Melatonin 3 Mg Tablet) 6 mg PO BEDTIME PRN PRN Reason: Insomnia Ondansetron HCl (Ondansetron Hcl 4 Mg/2 Ml Vial) 4 mg IVPUSH Q8H PRN PRN Reason: Nausea and Vomiting Pharmacy Consult (Consult Rx Etoh Phenob Im/Po) 1 each MISCELLANE ONCE PRN; Protocol PRN Reason: Consult order Phenobarbital (Phenobarbital 30 Mg Tablet) 60 mg PO BID [facility] Stop: 02/16/25 21:01 Last Admin: 02/15/25 08:20 Dose: 60 mg Documented By: KEYON Phenobarbital (Phenobarbital 30 Mg Tablet) 30 mg PO BID [facility] Stop: 02/18/25 21:01 Phenobarbital (Phenobarbital 15 Mg Tablet) 15 mg PO DAILY [facility] Stop: 02/20/25 09:01 Sodium Chloride (0.9 % Sodium Chloride Flush 3 Ml Syringe) 3 ml IVFLUSH QSHIFT [facility] Last Admin: 02/15/25 08:20 Dose: 3 ml Documented By: KEYON Thiamine HCl (Thiamine Hcl 100 Mg Tablet) 100 mg PO DAILY [facility] Last Admin: 02/15/25 08:20 Dose: 100 mg Documented By: KEYON Labs 02/15/25 06:29 02/15/25 06:29 Labs: Laboratory Results - last 24 hr 02/14/25 02/14/25 02/14/25 16:31 16:38 19:33 MCV 87.9 MCH 30.3 MCHC 34.4 RDW 12.9 Plt Count 393 MPV 8.0 L Immature Gran % (Auto) 0.5 H Neut % (Auto) 69.5 Lymph % (Auto) 19.3 L [place] % (Auto) 7.6 Eos % (Auto) 2.4 Baso % (Auto) 0.7 Lymph # (Auto) 2.4 [place] # (Auto) 0.9 Eos # (Auto) 0.3 Baso # (Auto) 0.1 Abs Immat Gran (auto) 0.06 H Absolute Neuts (auto) 8.5 H Absolute Nucleated RBC 0.000 Nucleated RBC % (auto) 0.0 PT 11.4 INR 1.0 VBG pH 7.43 VBG pCO2 33 VBG pO2 117 VBG HCO3 22 VBG O2 Saturation 99.0 VBG Base Excess -0.8 Anion Gap 18 Estim Creat Clear Calc 106.6 Estimated GFR > 60 Random Glucose 112 Lactic Acid 2.8 H* Calcium 9.1 D Magnesium 2.0 Total Bilirubin 0.4 AST 34 ALT 24 Alkaline Phosphatase 96 Troponin I Hi Sens Base 5.6 Troponin I Hi Sens 2 Hr 4.4 B-Natriuretic Peptide < 10 Total Protein 7.7 Albumin 4.3 Urine Color Yellow Urine Appearance Clear Urine pH 5.5 Ur Specific [place] >= 1.030 H Urine Protein 100 (2+) H Urine Glucose (UA) Negative Urine Ketones 15 Urine Blood Negative Urine Nitrite Negative Ur Leukocyte Esterase Negative Urine RBC 0-2 Urine WBC 0-5 Ur Squamous Epith Cells 0-2 Urine Bacteria None Seen Hyaline Casts 0-2 Urine Opiates Screen Not Detected Ur Buprenorphine Scrn Not Detected Ur Oxycodone Screen Not Detected Urine Methadone Screen Not Detected Urine Fentanyl Screen Not Detected Ur Barbiturates Screen Not Detected Ur Phencyclidine Scrn Not Detected Ur Amphetamines Screen Not Detected U Benzodiazepines Scrn Not Detected Urine Cocaine Screen POSITIVE H U Marijuana (THC) Screen POSITIVE H Ethyl Alcohol 129 Influenza Type A (PCR) NEGATIVE Influenza Type B (PCR) NEGATIVE RSV RNA Qual (PCR) NEGATIVE SARS-CoV-2 RNA (RT-PCR) NEGATIVE 02/14/25 02/15/25 20:11 06:29 MCV 89.7 MCH 29.8 MCHC 33.3 RDW 13.0 Plt Count 348 MPV 8.4 L Immature Gran % (Auto) 0.5 H Neut % (Auto) 56.5 Lymph % (Auto) 26.5 [place] % (Auto) 9.5 Eos % (Auto) 6.3 H Baso % (Auto) 0.7 Lymph # (Auto) 2.7 [place] # (Auto) 1.0 Eos # (Auto) 0.6 H Baso # (Auto) 0.1 Abs Immat Gran (auto) 0.05 H Absolute Neuts (auto) 5.7 Absolute Nucleated RBC 0.000 Nucleated RBC % (auto) 0.0 PT INR VBG pH VBG pCO2 VBG pO2 VBG HCO3 VBG O2 Saturation VBG Base Excess Anion Gap 11 L Estim Creat Clear Calc 141.9 Estimated GFR > 60 Random Glucose 92 Lactic Acid 1.7 Calcium 8.5 D Magnesium Total Bilirubin 0.9 AST 27 ALT 17 Alkaline Phosphatase 84 Troponin I Hi Sens Base Troponin I Hi Sens 2 Hr B-Natriuretic Peptide Total Protein 6.5 Albumin 3.7 Urine Color Urine Appearance Urine pH Ur Specific [place] Urine Protein Urine Glucose (UA) Urine Ketones Urine Blood Urine Nitrite Ur Leukocyte Esterase Urine RBC Urine WBC Ur Squamous Epith Cells Urine Bacteria Hyaline Casts Urine Opiates Screen Ur Buprenorphine Scrn Ur Oxycodone Screen Urine Methadone Screen Urine Fentanyl Screen Ur Barbiturates Screen Ur Phencyclidine Scrn Ur Amphetamines Screen U Benzodiazepines Scrn Urine Cocaine Screen U Marijuana (THC) Screen Ethyl Alcohol Influenza Type A (PCR) Influenza Type B (PCR) RSV RNA Qual (PCR) SARS-CoV-2 RNA (RT-PCR) Assessment and Plan (1) Elevated lactic acid level: Status: Acute (2) Cocaine use: Status: Acute (3) Alcohol intoxication: Status: Acute (4) Hypoxia: Status: Acute (5) Chest pain: Status: Acute Plan This is a 34-year-old male with history of alcohol dependence, cocaine use, marijuana use who presents to the emergency room status post cocaine binge with alcohol use daily. Patient was brought in out of concern for chest pain and found to be hypoxic. Workup is negative. CTA negative for PE. Patient being admitted for monitoring. No seizure activity suspected. Chest pain/ chest pressure ECG NSR no ischemic changes Troponin WNL, BNP WNL likely in the setting of cocaine use/episode of hypoxia Episode of hypoxia/ possible aspiration PNA from vomiting Oxygen required initially, pt had vomited at home after cocaine binge and alcohol use CTA neg for PE, PNA Leukocytosis resolved, likely reactive Not requiring supplemental oxygen Unasyn started empirically, transitioned to oral Augmentin until blood cultures return Blood cultures pending Alcohol use disorder/etoh dependence with risk for alcohol withdrawal Continue Phenobarbitol protocol follow CIWA continue Thiamine and Folic Acid Cocaine use Addiction Medicine consult Acute lactic acidosis Resolved with IV fluid Likely related to episode of hypoxia/drug and not due to sepsis DVT prophylaxis: Lovenox full code Quality Stroke Does the patient have a stroke diagnosis?: No Reason for No Anti-thrombotic by Day Two: N/A - Med Ordered VTE Prior VTE?: No VTE Risk Level:: Medical - moderate - high VTE Device Contraindication: N/A - Device Ordered VTE Drug Contraindication: Treatment Not Indicated
[2025-02-15 15:57] VITALS: BP 133/89; PULSE 70; RESP 18; TEMP 37.1; O2SAT 98
[2025-02-15 19:36] VITALS: BP 149/92; PULSE 72; RESP 20; TEMP 36.9; O2SAT 99
[2025-02-15] MEDS: Amoxicillin/Potassium Clav 875 MG TABLET PO (22:22)
[2025-02-15] MEDS: Enoxaparin Sodium 40 MG/0.4 ML SYRINGE SUBCUT (22:22)
[2025-02-16 04:00] VITALS: BP 162/75; PULSE 64; RESP 18; TEMP 36.6; O2SAT 99
[2025-02-16 07:12] VITALS: BP 148/90; PULSE 70; RESP 16; TEMP 36.6; O2SAT 100
[2025-02-16] MEDS: Amoxicillin/Potassium Clav 875 MG TABLET PO (07:44)
[2025-02-16] MEDS: Folic Acid 1 MG TABLET PO (07:44)
[2025-02-16] MEDS: Thiamine HCL 100 MG TABLET PO (07:44)
[2025-02-16] MEDS: PHENobarbitaL 30 MG TABLET 60 MG PO (07:45)
[2025-02-16] MEDS: 0.9 % Sodium Chloride Flush 3 ML SYRINGE IVFLUSH (07:45)
--- NOTE | 2025-02-16 09:17 | MHC.RECOVRN ---
Met with pt in 468 to follow up regarding interest in KASEY. Pts partner and sister present with pts permission. Pt reports interest in KASEY, educated pt on medications that are FDA approved for alcohol use disorder. Pt would like to initiate and continue care with the [facility]. Pt denies questions or concerns for t/w. Discussed with Margaret Mccurdy APRN. [facility] appt 02/23/25 at 3:30PM.
--- NOTE | 2025-02-16 10:51 | MHC.CM.PN ---
Patient is discharged today. He will follow up @ the [facility] 02/23/25 @ 3:30pm. His G.F. will provide transportation home.
--- NOTE | 2025-02-16 11:03 | HO.ADDICTCON ---
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 and expressed desire in starting KASEY History reviewed--patient reporting that he has been drinking 5-10 beers daily with 2 nips States he has been drinking at this rate for a few years Reporting occasional cocaine use, however used excessively prior to medical admission Denies any history of treatment Reports mild withdrawal sx at home when he does not drink (tremor) Has received pheno protocol while here and has responded well No withdrawal sx noted or reported Scheduled for discharge later today Review of Systems Constitutional: Reports as per HPI and Reports difficulty sleeping Diagnostics Vital Signs (24Hr): Vital Signs - 24 hr 02/15/25 15:57 02/15/25 19:36 02/16/25 04:00 Temperature 98.7 F 98.5 F 98 F Pulse Rate 70 72 64 Respiratory Rate 18 20 18 Blood Pressure 133/89 149/92 H 162/75 H Pulse Oximetry 98 99 99 Oxygen Delivery Method Room Air Room Air Room Air 02/16/25 07:12 Temperature 97.8 F Pulse Rate 70 Respiratory Rate 16 Blood Pressure 148/90 H Pulse Oximetry 100 Oxygen Delivery Method Room Air BMI result Body Mass Index 28.0 Labs 02/15/25 06:29 02/15/25 06:29 Labs: Laboratory Results - last 48 hr 02/14/25 02/14/25 02/14/25 16:31 16:38 19:33 WBC 12.3 H RBC 4.89 Hgb 14.8 Hct 43.0 MCV 87.9 MCH 30.3 MCHC 34.4 RDW 12.9 Plt Count 393 MPV 8.0 L Immature Gran % (Auto) 0.5 H Neut % (Auto) 69.5 Lymph % (Auto) 19.3 L [place] % (Auto) 7.6 Eos % (Auto) 2.4 Baso % (Auto) 0.7 Lymph # (Auto) 2.4 [place] # (Auto) 0.9 Eos # (Auto) 0.3 Baso # (Auto) 0.1 Abs Immat Gran (auto) 0.06 H Absolute Neuts (auto) 8.5 H Absolute Nucleated RBC 0.000 Nucleated RBC % (auto) 0.0 PT 11.4 INR 1.0 VBG pH 7.43 VBG pCO2 33 VBG pO2 117 VBG HCO3 22 VBG O2 Saturation 99.0 VBG Base Excess -0.8 Sodium 142 Potassium 3.4 Chloride 106 Carbon Dioxide 21 L Anion Gap 18 BUN 9 Creatinine 1.02 Estim Creat Clear Calc 106.6 Estimated GFR > 60 Random Glucose 112 Lactic Acid 2.8 H* Calcium 9.1 D Magnesium 2.0 Total Bilirubin 0.4 AST 34 ALT 24 Alkaline Phosphatase 96 Troponin I High Sens 5.4 Troponin I Hi Sens Base 5.6 Troponin I Hi Sens 2 Hr 4.4 B-Natriuretic Peptide < 10 Total Protein 7.7 Albumin 4.3 Urine Color Yellow Urine Appearance Clear Urine pH 5.5 Ur Specific [place] >= 1.030 H Urine Protein 100 (2+) H Urine Glucose (UA) Negative Urine Ketones 15 Urine Blood Negative Urine Nitrite Negative Ur Leukocyte Esterase Negative Urine RBC 0-2 Urine WBC 0-5 Ur Squamous Epith Cells 0-2 Urine Bacteria None Seen Hyaline Casts 0-2 Urine Opiates Screen Not Detected Ur Buprenorphine Scrn Not Detected Ur Oxycodone Screen Not Detected Urine Methadone Screen Not Detected Urine Fentanyl Screen Not Detected Ur Barbiturates Screen Not Detected Ur Phencyclidine Scrn Not Detected Ur Amphetamines Screen Not Detected U Benzodiazepines Scrn Not Detected Urine Cocaine Screen POSITIVE H U Marijuana (THC) Screen POSITIVE H Ethyl Alcohol 129 Influenza Type A (PCR) NEGATIVE Influenza Type B (PCR) NEGATIVE RSV RNA Qual (PCR) NEGATIVE SARS-CoV-2 RNA (RT-PCR) NEGATIVE 02/14/25 02/15/25 02/15/25 20:11 06:29 08:08 WBC 10.1 RBC 4.66 Hgb 13.9 L Hct 41.8 L MCV 89.7 MCH 29.8 MCHC 33.3 RDW 13.0 Plt Count 348 MPV 8.4 L Immature Gran % (Auto) 0.5 H Neut % (Auto) 56.5 Lymph % (Auto) 26.5 [place] % (Auto) 9.5 Eos % (Auto) 6.3 H Baso % (Auto) 0.7 Lymph # (Auto) 2.7 [place] # (Auto) 1.0 Eos # (Auto) 0.6 H Baso # (Auto) 0.1 Abs Immat Gran (auto) 0.05 H Absolute Neuts (auto) 5.7 Absolute Nucleated RBC 0.000 Nucleated RBC % (auto) 0.0 PT INR VBG pH VBG pCO2 VBG pO2 VBG HCO3 VBG O2 Saturation VBG Base Excess Sodium 139 Potassium 3.9 Chloride 107 Carbon Dioxide 25 Anion Gap 11 L BUN 8 L Creatinine 0.83 Estim Creat Clear Calc 141.9 Estimated GFR > 60 Random Glucose 92 Lactic Acid 1.7 Calcium 8.5 D Magnesium Total Bilirubin 0.9 AST 27 ALT 17 Alkaline Phosphatase 84 Troponin I High Sens 4.3 Troponin I Hi Sens Base Troponin I Hi Sens 2 Hr B-Natriuretic Peptide Total Protein 6.5 Albumin 3.7 Urine Color Urine Appearance Urine pH Ur Specific [place] Urine Protein Urine Glucose (UA) Urine Ketones Urine Blood Urine Nitrite Ur Leukocyte Esterase Urine RBC Urine WBC Ur Squamous Epith Cells Urine Bacteria Hyaline Casts Urine Opiates Screen Ur Buprenorphine Scrn Ur Oxycodone Screen Urine Methadone Screen Urine Fentanyl Screen Ur Barbiturates Screen Ur Phencyclidine Scrn Ur Amphetamines Screen U Benzodiazepines Scrn Urine Cocaine Screen U Marijuana (THC) Screen Ethyl Alcohol Influenza Type A (PCR) Influenza Type B (PCR) RSV RNA Qual (PCR) SARS-CoV-2 RNA (RT-PCR) Mental Status Exam Mental Status Exam Patient Appearance: Appropriate Level of Consciousness: Awake, Appropriate and Alert Patient Behavior: Appropriate and Talkative Medications Medications Current Medications Acetaminophen (Acetaminophen 325 Mg Tablet) 650 mg PO Q6H PRN PRN Reason: Pain, Mild 1-3,fever,headache Albuterol/Ipratropium (Albuterol/Iprat 2.5/0.5mg 3 Ml Ampul.Neb) 3 ml INHALE Q4H PRN PRN Reason: Shortness of Breath/Wheezing Amoxicillin/Clavulanate Potassium (Amoxicillin/Potassium Clav 875 Mg Tablet) 875 mg PO BID [facility] Last Admin: 02/16/25 07:44 Dose: 875 mg Benzonatate (Benzonatate 100 Mg Capsule) 100 mg PO TID PRN PRN Reason: Cough Calcium Carbonate (Calcium Carbonate 750 Mg Tab.Chew) 750 mg PO Q4H PRN PRN Reason: Heartburn Enoxaparin Sodium (Enoxaparin Sodium 40 Mg/0.4 Ml Syringe) 40 mg SUBCUT Q24H [facility] Last Admin: 02/15/25 22:22 Dose: 40 mg Folic Acid (Folic Acid 1 Mg Tablet) 1 mg PO DAILY [facility] Last Admin: 02/16/25 07:44 Dose: 1 mg Magnesium Hydroxide (Milk Of Magnesia 30 Ml Oral.Susp) 30 ml PO DAILY PRN PRN Reason: Constipation Melatonin (Melatonin 3 Mg Tablet) 6 mg PO BEDTIME PRN PRN Reason: Insomnia Ondansetron HCl (Ondansetron Hcl 4 Mg/2 Ml Vial) 4 mg IVPUSH Q8H PRN PRN Reason: Nausea and Vomiting Pharmacy Consult (Consult Rx Etoh Phenob Im/Po) 1 each MISCELLANE ONCE PRN; Protocol PRN Reason: Consult order Phenobarbital (Phenobarbital 30 Mg Tablet) 60 mg PO BID [facility] Stop: 02/16/25 21:01 Last Admin: 02/16/25 07:45 Dose: 60 mg Phenobarbital (Phenobarbital 30 Mg Tablet) 30 mg PO BID [facility] Stop: 02/18/25 21:01 Phenobarbital (Phenobarbital 15 Mg Tablet) 15 mg PO DAILY [facility] Stop: 02/20/25 09:01 Sodium Chloride (0.9 % Sodium Chloride Flush 3 Ml Syringe) 3 ml IVFLUSH QSHIFT [facility] Last Admin: 02/16/25 07:45 Dose: 3 ml Thiamine HCl (Thiamine Hcl 100 Mg Tablet) 100 mg PO DAILY [facility] Last Admin: 02/16/25 07:44 Dose: 100 mg Allergies Allergies Allergy/AdvReac Type Severity Reaction Status Date / Time No Known Allergies Allergy Verified 02/14/25 15:40 Assessment & Plan Assessment & Plan (1) Alcohol use disorder, severe, dependence: Status: Acute Code(s): F10.20 - Alcohol dependence, uncomplicated Assessment and Plan: naltrexone 25mg X3 days, then increase to one tab daily --reviewed with patient --side effects, goals of treatment [facility] appt scheduled, patient aware of date and time Total time managing care of this patient today _35___ minutes. [facility] Past Medical History Medical History (Updated 02/16/25 @ 21:17 by Margaret Mccurdy CNP) Cocaine use Alcohol intoxication Marijuana dependence Sepsis Social History Social History Household Members: Spouse and Children Household Members Other:: total of 5 children between he and spouse. Housing: Apartment Do you presently have visiting nurse or other home services: No Comment: at bedside. Patient Tobacco Use Status: Former Tobacco user e-Cigarette/Vaping Use: Never Used Second Hand Smoke Exposure: No Substance Use Type: Other service: No
--- NOTE | 2025-02-16 11:08 | PM.DS ---
DS: Providers Provider Date of Service: 02/16/25 Date of admission: 02/14/25 18:52 Date of discharge: 02/16/25 Primary care physician: Unknown Physician Consults: 02/14/25 19:47 Addiction Medicine Provider Routine Consulting Provider: Addiction Covering Reason for consultation: recent cocaine binge, close to OD, dailY etoh DS: Diagnosis Discharge Diagnosis (1) Elevated lactic acid level: Status: Acute (2) Cocaine use: Status: Acute (3) Alcohol intoxication: Status: Acute (4) Hypoxia: Status: Acute (5) Chest pain: Status: Acute DS: Summary Hospital Course Hospital Course: History and physical as per admitting provider. Patient is 34-year-old male with past medical history infectious cut on the bottom of the foot/sepsis at age 12 which lead to multiorgan failure and ICU admission, alcohol dependence, cocaine use, marijuana use was brought in by ambulance from his sister's home after 2 nights of cocaine use along with usual alcohol use, minimum 2-3 hard liquor drinks. Patient does currently work a full-time job and is the father of 2 children. Patient began to constitution party after work on night using a moderate amount of cocaine and alcohol. Patient then went to work on Sunday and met up with the same friends and began drinking alcohol and used copious amounts of cocaine via snorting. Patient clarified he was not using crack cocaine. At some point patient made it to his sister's house as he decided it may not be a good idea to be alone. Patient awakened prior to 12 noon and attempted to eat some food. Patient then began to have sudden chest pressure, numbness and tingling to arms and legs, perfuse sweating with nausea and then vomiting. Patient had to lie himself on the bathroom floor and sister saw that he needed intervention. Per patient's sister patient did not lose consciousness and did not appear to have seizure-like activity. 911 was called and patient was brought in for evaluation. Patient was found to be hypoxic 79% on room air. Patient was extremely anxious. Face mask was applied and oxygenation improved. CTA negative for PE, no evidence of pneumonia or edema. Calcified right lower lobe nodule. No acute fractures. Head CT also negative for any acute changes. UA pending. Currently patient has impressive rhinitis with injected sclera. Patient has an intermittent memory of what occurred over the last 2 nights. Patient admits that he is scared and feels that he could have lost his life. Patient's sister expresses that patient's symptoms of drinking daily now has been going on for the last 3-5 months. Patient drinks usually hard liquor 2-3 drinks minimum. Patient appears to be drinking due to increased stress. Patient denies any use of other illicit drugs including fentanyl or crack cocaine. Patient has no history of IV drug abuse. Patient currently denies any suicidal ideation. There is some concern for possible aspiration pneumonia with wheezing noted on the right upper and middle lobes. Patient has a leukocytosis of 12.3 and a lactic acid of 2.8. Patient is not tachycardic or febrile. EKG is reassuring, normal sinus rhythm no ischemic changes. Troponin negative. BNP also normal. Patient currently denies any chest pain, numbness and reports all his previous symptoms have resolved. Plan is admit patient for alcohol/cocaine withdrawal, phenobarbital, antibiotics, IV fluids, antiemetics, addictions referral. 34-year-old man treated for chest pain found to have hypoxia secondary to aspiration pneumonia from vomiting. Patient treated with oxygen, symptoms likely secondary to cocaine binge and alcohol use. CTA negative for PE, leukocytosis resolved, Unasyn started empirically but patient transitioned to Augmentin and will continue total of 5 days. Blood cultures have remained negative. Patient was treated with phenobarbital protocol while inpatient and advised to avoid alcoholic beverages. Troponin was within normal limits and EKG negative for any ischemic changes. Chest pain or pressure was likely secondary to cocaine use. Plan will be to discharge patient home was started on naltrexone as per Addiction Medicine team. Time Attestation Discharge Coordination Time (in mins): 40 Quality: Safe Use of Opioids Does Pt have an Active Cancer Diagnosis on the Problem List?: No Quality: Stroke Does the patient have a stroke diagnosis?: No Physical Exam Vital Signs: Vital Signs: Last Vital Signs Temp 97.8 F 02/16/25 07:12 Pulse 70 02/16/25 07:12 Resp 16 02/16/25 07:12 BP 148/90 H 02/16/25 07:12 Pulse Ox 100 02/16/25 07:12 O2 Del Method Room Air 02/16/25 07:12 O2 Flow Rate 4 02/14/25 19:47 Oxygen Flow Rate 2 02/14/25 15:37 BMI result Body Mass Index 28.0 Appearing in no acute distress head is normocephalic atraumatic eyes pupils are PERRLA sclera is anicteric mouth throat mucous membranes are intact and moist neck is supple no lymphadenopathy, no JVD noted lung sounds are clear to auscultation heart regular rate rhythm, clear S1, S2 positive bowel sounds, abdomen is soft, nontender neuro patient is alert x3, no focal deficits DS: Data Data Completed and Pending Labs on day of discharge: Preliminary micro results at discharge 02/14/25 21:22 Blood Culture - Preliminary Blood - Venous No growth after 24 hours. 02/14/25 21:22 Blood Culture - Preliminary Blood - Venous No growth after 24 hours. Discharge Plan Discharge Anticipated Discharge Date/Time: 02/16/25 11:03 Patient Disposition: Home, Self-Care Discharge Diagnosis: Chest pain Alcohol intoxication Cocaine abuse Referrals: [facility] [Provider Group] - 02/23/25 3:30 pm ([facility] appt 02/23/25 3:30PM Please call the office with any questions or concerns) [place] [facility] [Outside] - 1 Week (Call the [facility] office in [place] for Stimulant use Disorder clinic info. Call for therapy) Discharge Medications: New naltrexone 50 mg tablet 50 mg PO DAILY Qty: 30 0RF Rx Instructions: take 1/2 tab for 3 days, then increase to one tab daily amoxicillin-pot clavulanate 875-125 mg Tablet 1 tab PO BID Qty: 6 0RF Discharge Orders: Discharge Order (Routine); Ordered 02/16/25 Ordered By: Sarah Keller Diet: Advance to usual diet Activity on Discharge: As tolerated Stand Alone Forms: Patient Portal Discharge page Print Language: Unable To Collect Care Plan Goals: Avoid alcoholic beverages as well as narcotic drugs Health Concerns: Chest pain Alcohol intoxication Cocaine abuse Plan of Treatment: Follow-up with primary care provider as needed Take all medications as prescribed Assessment: See discharge summary
[2025-02-16] MEDS: Naltrexone HCl 50 MG TABLET 25 MG PO (11:35)
== END 2025-02-16 12:43 | disposition home or self-care (01) | DRG 137 ==
LOC: HO.ED 18:51 → HO.EDOVER 19:43 → HO.IMC 20:02
PROVIDERS: Nurse Practitioner Family; Physician Assistant; Physician Assistant Medical; Admitting Provider Student in an Organized Health Care Education/Training Program; Emergency Provider Emergency Medicine; Visit Provider Nurse Practitioner Acute Care
DX: J69.0 Pneumonitis due to inhalation of food and vomit (principal); E87.21 Acute metabolic acidosis; F10.229 Alcohol dependence with intoxication, unspecified; R09.02 Hypoxemia; Y90.6 Blood alcohol level of 120-199 mg/100 ml; F14.90 Cocaine use, unspecified, uncomplicated; Z20.822 Contact with and (suspected) exposure to COVID-19
CPT/HCPCS: 0241U; 36415; 70450; 71275; 80053; 80307; 81001; 82803; 83605; 83735; 83880; 84484; 85025; 85610; 87040; 93005; 99285; J0295; J1650; J2405; J2560; J3360; J3411; Q9967; S9485

== ENCOUNTER → 2025-02-14 15:37 | Outpatient (BNV) | payer MEDICAID, SELFPAY | PROVIDERS: Admitting Provider Student in an Organized Health Care Education/Training Program; Emergency Provider Emergency Medicine; Visit Provider Internal Medicine | DX: R07.9 Chest pain, unspecified (principal) | CPT/HCPCS: 93010 ==

== ENCOUNTER → 2025-02-14 16:06 | Outpatient (BNV) | payer MEDICAID, SELFPAY | PROVIDERS: Emergency Provider Emergency Medicine; Visit Provider Radiology Diagnostic Radiology | DX: R09.02 Hypoxemia (principal); R06.02 Shortness of breath; R07.9 Chest pain, unspecified; R42 Dizziness and giddiness | CPT/HCPCS: 70450; 71275 ==

== ENCOUNTER → 2025-02-14 18:52 | Outpatient (BNV) | payer OTHER, SELFPAY | PROVIDERS: Admitting Provider Student in an Organized Health Care Education/Training Program; Emergency Provider Emergency Medicine; Visit Provider Nurse Practitioner Psychiatric/Mental Health | DX: F10.20 Alcohol dependence, uncomplicated (principal) | CPT/HCPCS: 99232 ==

== ENCOUNTER → 2025-02-14 18:52 | Outpatient (BNV) | payer MEDICAID, SELFPAY | PROVIDERS: Admitting Provider Student in an Organized Health Care Education/Training Program; Emergency Provider Emergency Medicine; Visit Provider Nurse Practitioner Family | DX: R07.89 Other chest pain (principal) | CPT/HCPCS: 99223 ==

== ENCOUNTER 2025-02-20 12:49 | Emergency (ER) | payer MEDICAID, SELFPAY ==
--- NOTE | ~2025-02-20 | XR_ITS ---
EXAMINATION: XR CHEST CLINICAL INFORMATION: chest pain COMPARISON: None available. TECHNIQUE: 2 views of the chest were obtained. FINDINGS: 4 mm pulmonary nodule, right lower hemithorax and not enlarged lymph nodes in the inferior right pulmonary hilum. No consolidation, pleural effusion or pneumothorax. Cardiomediastinal silhouette size is normal. Mild multilevel lower thoracic spondylosis and mild S-shaped curvature of the lower thoracic spine. XR/XR chest 2V IMPRESSION: 4 mm pulmonary granuloma,, right lower lung lobe. Electronically signed by: Cezar Lal MD 02/20/2025 01:22 PM EDT
--- NOTE | 2025-02-20 12:52 | ED_ITS ---
HPI - Dizziness General Chief Complaint: Chest Pain Stated Complaint: High BP, dizziness Time Seen by Provider: 02/20/25 16:09 Source: patient and old records reviewed Mode of arrival: ambulatory Limitations: no limitations History of Present Illness ED Provider: KENYETTA HUERTA Narrative: 34 yo male with PMH of ETOH abuse, cocaine abuse, prior chest pain here with c/o carrying a pipe up the stairs. He put it down - he then bent down to get it again and when he did he was very dizzy, his whole body including chest was tight, he had tingling in his arms and legs. He feels better now. He denies recent travel, procedures, no drug use. He does note he has sinus pressure and pain due to pollen. He states he feels fine now. He has bene drinking enough. He takes nothing for his allergies MD elicited complaint: dizziness Pertinent past history: other Onset (ago): hour(s) (11am) Timing: sudden onset Severity: moderate Description: lightheadedness Context: change in body position History of similar symptoms: No Exacerbating factors: change in body position Relieving factors: nothing Associated symptoms: chest pain Related Data Previous Rx's ?Medication ?Instructions ?Recorded amoxicillin 875 mg-potassium 1 tab PO BID #6 tabs 02/16/25 clavulanate 125 mg tablet naltrexone 50 mg tablet 50 mg PO DAILY #30 tabs 02/16/25 cetirizine 10 mg tablet 10 mg PO DAILY #30 tabs 02/20/25 fluticasone propionate 50 1 spray intranasal DAILY #16 grams 02/20/25 mcg/actuation nasal spray,suspension Allergies Allergy/AdvReac Type Severity Reaction Status Date / Time No Known Allergies Allergy Verified 02/20/25 12:55 Review of Systems 2 Review of Systems: Constitutional : No Fever, No Chills, No Fatigue ENT/Mouth : No sore throat, No Rhinorrhea, pos sinus congestion and pain Eyes: No Eye Pain, No Swelling, No Redness Cardiovascular : pos Chest Pain, No SOB, No Dyspnea on Exertion Respiratory : No Cough, No Sputum Gastrointestinal : No Nausea, No Vomiting, No Diarrhea, No abdominal Pain Genitourinary : No Dysuria, No Urinary Frequency, No Hematuria, Musculoskeletal : No joint pain, No Myalgias, No Joint Swelling Skin : No Skin Lesions, No rash Neuro : No Weakness, No Numbness, pos Dizziness, no Headache Psych : No Anxiety/Panic, No Depression Heme/Lymph: No Bruising, No Bleeding,No Lymphadenopathy Endocrine : No Polyuria, No Polydipsia All other systems reviewed and are negative [facility] Past Medical History Attestation statement: The following information was validated with the patient. Source: old records reviewed Medical History Cocaine use Alcohol intoxication Marijuana dependence Sepsis Social History Social History Household Members: Spouse and Children Household Members Other:: total of 5 children between he and spouse. Housing: Apartment Do you presently have visiting nurse or other home services: No Comment: at bedside. Patient Tobacco Use Status: Former Tobacco user e-Cigarette/Vaping Use: Never Used Second Hand Smoke Exposure: No Substance Use Type: Other Advance Directives: No Advance Directives Information Provided: No service: No Physical Exam 2 Vital Signs: Vital Signs: Last Vital Signs Temp 97.9 F 02/20/25 16:14 Pulse 66 02/20/25 16:43 Resp 20 02/20/25 16:14 BP 155/108 H 02/20/25 16:43 Pulse Ox 96 02/20/25 16:14 O2 Del Method Room Air 02/20/25 16:14 BMI result Body Mass Index 28.2 Appearance: Alert. Oriented X3. No acute distress. Eyes: Pupils equal, round and reactive to light. ENT: Pharynx normal. sinus congestion Neck: Normal inspection. Neck supple. CVS: Normal heart rate and rhythm. Pulses normal. Respiratory: No respiratory distress. Breath sounds normal. Abdomen: Soft and nontender. Skin: Skin warm and dry. Normal skin color. Normal skin turgor. Extremities: No lower extremity edema. No calf ttp Neuro: Oriented X 3. No motor deficit. No sensory deficit. CN2-12 intact Course Course Course Narrative: This is an RME performed by Stephenie Regalado CNP: Additional HPI, ROS, PE not included below will be deferred to primary provider. 34 yo male with Pmhx of AUD, cocaine use disorder, presents to the ED due to elevated BP. States he was working today and when lifting heavy objects and walking up stairs and putting heavy object down, he began to feel dizzy, have numbness in legs, and body heaviness . States he is feeling a heaviness in chest without diaphoresis. Denies LOC. States he has been experiencing seasonal allergies but has not been taking any medications. Plan: Labs, EKG, orthostatics Medications Administered Generic Name Dose Route Start Last Admin Trade Name Jessica PRN Reason Stop Dose Admin Lactated Ringer's 1,000 mls @ 999 mls/hr 02/20/25 16:33 02/20/25 16:49 Lr IV 02/20/25 17:33 999 mls/hr .Q1H1M ONE Administration Medical Decision Making Medical Decision Making MDM Narrative: 34 yo male with PMH of ETOH abuse, cocaine abuse, prior chest pain here with c/o atypical chest pain and dizziness with bending down at this time he has no ACS risk factors no cocaine abuse, pulses intact doubt dissection and pain resolved, PERC negative - doubt VTE. I am also going to treat his allergic rhinitis - start on medications. Differential Diagnosis Differential Diagnoses: The differential diagnosis associated with the presentation includes atypical chest pain, pain resolved doubt dissection, allergic rhinitis Admission/Observation Consideration of admission/observation: Escalation of care including admission/observation considered repeat trop negative, EKG nonischemic start on fluticasone and zyrtec repeat BP with doctor next week Lab Data [facility] Lab Attestation statement: I reviewed the patient's lab results. 02/20/25 13:07 02/20/25 13:07 Labs: Lab Results 02/20/25 02/20/25 Range/Units 13:07 16:25 WBC 11.9 H (4.8-10.8) X10*3/uL RBC 4.96 (4.60-5.80) X10*6/uL Hgb 15.0 (14.0-18.0) g/dl Hct 44.3 (42.0-52.0) % MCV 89.3 (80.0-98.0) fL MCH 30.2 (27.0-33.0) pg MCHC 33.9 (31.0-36.0) g/dl RDW 12.9 (11.0-16.0) % Plt Count 358 (160-400) X10*3/uL MPV 8.2 L (9.4-12.4) fL Immature Gran % (Auto) 0.5 H (0.0-0.4) % Neut % (Auto) 59.2 (45-73) % Lymph % (Auto) 26.3 (20-40) % [place] % (Auto) 8.2 (2-11) % Eos % (Auto) 5.1 H (0-4) % Baso % (Auto) 0.7 (0-2) % Lymph # (Auto) 3.1 (1.2-4.9) X10*3/uL [place] # (Auto) 1.0 (0.1-1.2) X10*3/uL Eos # (Auto) 0.6 H (0.0-0.4) X10*3/uL Baso # (Auto) 0.1 (0.0-0.2) X10*3/uL Abs Immat Gran (auto) 0.06 H (0.00-0.03) X10*3/uL Absolute Neuts (auto) 7.0 (2.0-8.3) x10*3/uL Absolute Nucleated RBC 0.000 (0.0-0.012) X10*3/uL Nucleated RBC % (auto) 0.0 (0.0-0.2) /100WBC Sodium 135 (135-145) mmol/L Potassium 3.9 (3.3-5.1) mmol/L Chloride 100 (96-108) mmol/L Carbon Dioxide 28 (22-29) mmol/L Anion Gap 11 L (12-20) BUN 12 (9-16) mg/dL Creatinine 0.99 (0.5-1.4) mg/dL Estim Creat Clear Calc 119.3 Estimated GFR > 60 Random Glucose 89 (60-115) mg/dL Calcium 9.4 D (8.4-10.2) mg/dL Magnesium 2.1 (1.6-2.6) mg/dL Total Bilirubin 0.2 (0.0-1.0) mg/dL AST 47 H (5-37) U/L ALT 53 H (0-40) U/L Alkaline Phosphatase 95 (39-117) U/L Troponin I High Sens < 2.7 < 2.7 (<3.5-35.0) ng/L Total Protein 7.7 (6.5-8.0) g/dL Albumin 4.4 (3.5-5.0) g/dL Influenza Type A (PCR) NEGATIVE (Negative) Influenza Type B (PCR) NEGATIVE (Negative) RSV RNA Qual (PCR) NEGATIVE (Negative) SARS-CoV-2 RNA (RT-PCR) NEGATIVE (Negative) Independent Interpretation I performed an independent interpretation of an: EKG and Plain X-Ray (no PTX) Interpretation: Rate: 63 Rhythm: NSR [place]: normal Normal P waves. Normal EBONI. Normal QRS complex. ST T wave : no LITO, flat t waves aVL qTC: 423 prior studies: no acute ischemia The study has been interpreted contemporaneously by me. . Radiology Impression Discussion of test interpretation with radiology: I have reviewed the radiologist's reading. Independent Historian Clinical information obtained from an independent historian. History obtained from or confirmed by: Spouse External Record Review External record reviewed: Outpatient record Prescription Management I considered prescription management with: Other Discharge Plan Discharge Clinical Impression: Atypical chest pain Allergic rhinitis Qualifiers: Allergic rhinitis trigger: pollen Allergic rhinitis seasonality: seasonal Q ualified Code(s): J30.1 - Allergic rhinitis due to pollen Patient Disposition: Home, Self-Care Instructions: Chest Pain (ED), Allergies (ED) Additional Instructions: repeat troponin normal and EKG normal chest xray small nodule repeat chest xray in 6 months mild bump in liver enzymes repeat next week with your doctor repeat blood pressure next week with your doctor return for any worsening symptoms or concerns XR/XR chest 2V IMPRESSION: 4 mm pulmonary granuloma,, right lower lung lobe. repeat chest xray in 6 months Prescriptions: New fluticasone propionate 50 mcg/actuation spray,suspension 1 spray intranasal DAILY Qty: 16 0RF Rx Instructions: administer into each nostril cetirizine 10 mg tablet 10 mg PO DAILY Qty: 30 2RF No Action naltrexone 50 mg tablet 50 mg PO DAILY Qty: 30 0RF Rx Instructions: take 1/2 tab for 3 days, then increase to one tab daily amoxicillin-pot clavulanate 875-125 mg Tablet 1 tab PO BID Qty: 6 0RF Stand Alone Forms: Work/School Release Print Language: Unable To Collect
[2025-02-20 12:53] VITALS: BP 146/99; PULSE 68; RESP 18; TEMP 36.4; O2SAT 100; BMI 28.2
--- NOTE | 2025-02-20 12:56 | ECG_ITS ---
Test Reason : chest heaviness Blood Pressure : */* mmHG Vent. Rate : 63 BPM Atrial Rate : 63 BPM P-R Int : 130 ms QRS Dur : 84 ms QT Int : 414 ms P-R-T Axes : 66 82 57 degrees QTcB Int : 423 ms Normal sinus rhythm with sinus arrhythmia Normal ECG When compared with ECG of 14-Feb-2025 15:37, Sinus rhythm has replaced Ectopic atrial rhythm Vent. rate has decreased by 31 bpm Referred By: Isamar Regalado Electronically Signed By: YULY MATSON
[2025-02-20 13:11] LABS: MANUAL DIFF FLAG NO
[2025-02-20 13:13] LABS: Basophils Absolute Auto 0.1 X10*3/uL (0.0-0.2); Basophils Percent Auto 0.7 % (0-2); Eosinophils Absolute Auto 0.6 X10*3/uL (0.0-0.4); Eosinophils Percent Auto 5.1 % (0-4); Hematocrit 44.3 % (42.0-52.0); Imm Gran Abs Auto 0.06 X10*3/uL (0.00-0.03); Imm Gran Pct Auto 0.5 % (0.0-0.4); Lymphocytes Absolute Auto 3.1 X10*3/uL (1.2-4.9); Lymphocytes Percent Auto 26.3 % (20-40); Mean Corpuscular HGB Conc 33.9 g/dl (31.0-36.0); Mean Corpuscular Hemoglobin 30.2 pg (27.0-33.0); Mean Corpuscular Volume 89.3 fL (80.0-98.0); Mean Platelet Volume 8.2 fL (9.4-12.4); Monocytes Percent Auto 8.2 % (2-11); Neutrophils Percent Auto 59.2 % (45-73); Platelet Count 358 X10*3/uL (160-400); Red Blood Count 4.96 X10*6/uL (4.60-5.80); Red Cell Distribution Width 12.9 % (11.0-16.0); White Blood Count 11.9 X10*3/uL (4.8-10.8)
[2025-02-20 13:27] LABS: Alanine Aminotransferase 53 U/L (0-40); Albumin Level 4.4 g/dL (3.5-5.0); Alkaline Phosphatase 95 U/L (39-117); Anion Gap 11 (12-20); Aspartate Amino Transferase 47 U/L (5-37); Bilirubin Total 0.2 mg/dL (0.0-1.0); Blood Urea Nitrogen 12 mg/dL (9-16); Calcium 9.4 mg/dL (8.4-10.2); Carbon Dioxide 28 mmol/L (22-29); Chloride 100 mmol/L (96-108); Creatinine Clr Calc Pharmacy 119.3; Estimated Glomerular Filt Rate > 60; Glucose Random 89 mg/dL (60-115); Magnesium 2.1 mg/dL (1.6-2.6); Potassium 3.9 mmol/L (3.3-5.1); Sodium 135 mmol/L (135-145); Total Protein 7.7 g/dL (6.5-8.0)
[2025-02-20 13:36] LABS: Troponin-I High Sensitivity < 2.7 ng/L (<3.5-35.0)
[2025-02-20 13:56] LABS: Influenza A PCR NEGATIVE (Negative); Influenza B PCR NEGATIVE (Negative); Resp Syncy Virus RNA Qual PCR NEGATIVE (Negative); SARS COV2 PCR INHOUSE NEGATIVE (Negative)
--- OUTSIDE RECORDS SUMMARY | 2025-02-20 16:10 | XMS_ITS | Clinical Summary ---
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 Name Role Phone Unavailable Primary Care Provider Unavailabl e Encounters Date Type Department Care Team Description 12/26/2024 Population Health Risk Score [facility] ([facility]) Department [address] [place] [address] Provider, Population Health Generic from Last 3 Months Social History Tobacco Use Types Packs/Day Years Used Date Smoking Tobacco: Never Assessed Sex and Gender Information Value Date Recorded Sex Assigned at Not on file Legal Sex Male 1:45 PM EST Gender Identity Not on file Sexual Orientation Not on file Plan of Treatment Health Maintenance Due Date Last Done Comments Depression Screening 1988 HIV Screening 1988 Lipid Panel 1988 SDOH Screening 1988 Alcohol/Substance Use Screening 2000 Tobacco Screening 2000 Family Planning (PISQ) 2003 Hepatitis C Screening 2006 DTaP/Tdap/Td Vaccines (1 - Tdap) 2007 Hepatitis B Vaccines (1 of 3 - 19+ 3-dose series) 2007 COVID-19 Vaccine ( - 2023-2 5 season) 2024 Influenza Vaccine (#1) 2024 Zoster Vaccines (1 of 2) 2038 RSV Patients and Pa tients Aged 60 years or older (1 - 1-dose 75+ series) 2063 HIB Vaccines Aged Out No longer eligi ble based on patient's age to complete this topic HPV Vaccines Aged Out No longer eligi ble based on patient's age to complete this topic Hepatitis A Vaccines Aged Out No long er eligible based on patient's age to complete this topic IPV Vaccines Aged Out No longer eligi ble based on patient's age to complete this topic Meningococcal Vaccine Aged Out No jayden jc eligible based on patient's age to complete this topic Pneumococcal Vaccine: Pediat rics (0 to 5 Years) and At-Risk Patients (6 to 49) Years) Aged Out No longer eligible b ased on patient's age to complete this topic RSV under 20 months Aged Out No longe r eligible based on patient's age to complete this topic Rotavirus Vaccines Aged Out No longer eligible based on patient's age to complete this topic
[2025-02-20 16:14] VITALS: BP 137/87; PULSE 62; RESP 20; TEMP 36.6; O2SAT 96
[2025-02-20 16:41] VITALS: BP 137/81; PULSE 61
[2025-02-20 16:42] VITALS: BP 146/99; PULSE 61
[2025-02-20 16:43] VITALS: BP 155/108; PULSE 66
[2025-02-20] MEDS: Lactated Ringers 1,000 ML 999 ML IV (16:49)
[2025-02-20 17:04] LABS: Troponin-I High Sensitivity < 2.7 ng/L (<3.5-35.0)
[2025-02-20 17:40] VITALS: BP 155/108; PULSE 66; RESP 18; TEMP 36.6
== END 2025-02-20 17:41 | disposition home or self-care (01) ==
PROVIDERS: Nurse Practitioner Family; Emergency Provider Emergency Medicine
DX: R07.89 Other chest pain (principal); J30.1 Allergic rhinitis due to pollen; R42 Dizziness and giddiness; F14.10 Cocaine abuse, uncomplicated; F10.20 Alcohol dependence, uncomplicated; F12.20 Cannabis dependence, uncomplicated; Z87.891 Personal history of nicotine dependence; Z03.818 Encounter for observation for suspected exposure to other biological agents ruled out
CPT/HCPCS: 0241U; 36415; 71046; 80053; 83735; 84484; 85025; 93005; 96360; 99284; J7120

== ENCOUNTER → 2025-02-20 12:56 | Outpatient (BNV) | payer MEDICAID, SELFPAY | PROVIDERS: Emergency Provider Emergency Medicine; Visit Provider Internal Medicine | DX: R07.89 Other chest pain (principal) | CPT/HCPCS: 93010 ==

== ENCOUNTER → 2025-02-20 12:58 | Outpatient (BNV) | payer MEDICAID, SELFPAY | PROVIDERS: Visit Provider Radiology Diagnostic Radiology | DX: J84.10 Pulmonary fibrosis, unspecified (principal) | CPT/HCPCS: 71046 ==